=== PATIENT | female | born 1965 | race Caucasian/White ===

== ENCOUNTER 2022-01-12 20:31 | Emergency (ER) | payer OTHER, SELFPAY ==
--- OUTSIDE RECORDS SUMMARY | 2022-01-12 20:36 | XMS REPORT | Continuity of Care Document ---
:1965 Author Organization [facility] [place] [facility] t Address [address] [place] [address] Care Team Providers Name Role Phone [facility] Primary Care Physician Unavailab Dick Dang Attending Clinician Unavailable Sheryl HPLC CHEMIST, Dick Attending Clinician Natalya Mariano Attending Clinician NATALYA VANESSA Attending Clinician Unavailable Doctor Unassigned, Name Attending Clinician Unavailable RUFINO Attending Clinician Unavailable NETTA Attending Clinician Unavailable JUAN CARLOS Attending Clinician Unavailable Janeen KESSLER Attending Clinician Unavailable NATALYA VANESSA Admitting Clinician Unavailable Payers Payer Name Policy Type Policy Number Effective Date Expiration Date S ource Problems Condition Condition Condition Status Onset Resolution Last Treating Co mments Source Name Details Category Date Date Treatment Clinician Date No known No known Disease Unive rs active active ity of problems problems [facility] Allergies, Adverse Reactions, Alerts Allergy Allergy Status Severity Reaction(s) Onset Inactive Treating Comm ents Source Name Type Date Date Clinician ERYTHROM DRUG Active Rash Univers YCIN 07-14 ity of 00:00: [address] Erythrom Propensi Active Rash Univer s ycin ty to 07-14 ity of adverse 00:00: [place] reaction 00 [facility] Branch No Known DA Active U 2017-06 [facility] Allergie 2-11 Clear s 00:00: [place] [facility] CODEINE DA Active U 2007-0 [facility] 9-25 Clear 00:00: [place] 00 [facility] No Known DA Active U 2007-0 [facility] Contrast 9-25 Clear Allergie 00:00: [place] 00 [facility] No Known DA Active U 2007-0 [facility] Food 9-25 Clear Allergie 00:00: [place] [facility] No Known DA Active U 2007-0 [facility] Other 9-25 Clear Allergie 00:00: [place] [facility] codeine DA Active U 2003-0 [facility] 8-12 Clear 00:00: [place] 00 [facility] NO KNOWN Drug Active Univers ALLERGIE Class ity of [facility] Social History Social Habit Start Date Stop Date Quantity Comments Source Exposure to 2021-10-10 2021-10-20 Not sure [facility] SARS-CoV-2 (event) 00:00:00 14:39:00 Medica l Branch Sex [birth year] [facility] 00:00:00 00:00:00 Medical Branch Smoking Status Start Date Stop Date Source Former smoker 2015-12-14 00:00:00 2015-12-14 00:00:00 [facility] Branch Medications Ordered Filled Start Stop Current Ordering Indication Dosage Frequency Signature Comments Components Source Medication Medication Date Date Medication? Clinician (SIG) Name Name fluticasone Yes Use in Uni vers propionate 5-01 each ity of 50 16:40: nostril [place] mcg/actuati 50 daily. Medica l on nasal Branch spray cycloSPORIN Yes [id number] 1[drp] Place 1 Univers E 5-01 Drop in ity of (RESTASIS) 00:00[place] 0.05 % 00 every 12 Medical drops (twelve) Branch hours. tobramycin 2021- Yes [id number] 2[drp] Place 2 Univers 0.3 % 5-01 05-07 Drops in ity of ophthalmic 00:00: 04:59 [place] drops 00 :00 2 (two) Medical times Branch daily for 5 days. Continue until you follow up with eye doctor. cycloSPORIN 2021- No [id number] 1[drp] Place 1 Univers E 10-20 Drop in ity of (RESTASIS) 00:00: 00:00 [place] 0.05 % 00 :00 every 12 Medical drops (twelve) Branch hours. neomycin-po Yes .5[in_u 0.5 Inch, Univers lymyxin-dex 1-24 s] Right Eye, it y of amethasone 02:00: QID, First [place] (MAXITROL) 00 dose on Medica l 3.5 Sun Branch mg/g-10,000 07/14/21 at unit/g-0.1 2000, % Until ophthalmic Discontinu ointment ed, 0.5 Inch Routine neomycin-ba Yes [id number] .5[in_u Place 0.5 Univers citracin-po 07-14 9102 s] Inches in ity of ly-HC 00:00: right eye [place] 3.5-400-10, 00 4 (four) Medi diana 000 times Branch mg-unit/g-1 daily. % ophthalmic ointment neomycin-ba 2021- No [id number] .5[in_u Place 0.5 Univers citracin-po 07-14 9102 s] Inches in it y of ly-HC 00:00: 00:00 right eye [place] 3.5-400-10, 00 :00 4 (four) Medi diana 000 times Branch mg-unit/g-1 daily. % ophthalmic ointment methylpredn 2020-06- No 125mg 125 mg, U nivers isolone sod 08-18 Intramuscu i ty of succ 01:00: 23:50 lar, ONCE, [place] (SOLU-MEDRO 00 :00 1 dose, On Me dical L) Sun Branch injection 06/16/21 125 mg at 1900, STAT ipratropium 2020-06- No 3mL 3 mL, Univ ers -albuteroL 08-17 Inhalation it y of (DUONEB) 23:30: 23:30 , ONCE, 1 Akil as 0.5 mg-3 00 :00 dose, On Medical mg(2.5 mg Sun Branch base)/3 mL 06/16/21 nebulizer at 1730, solution 3 Routine mL predniSONE 2020-06 Yes [id number] 1 PO BID x Univers 20 mg 2-26 4 days ity of tablet 00:00: [place] 00 Medical Branch azithromyci 2020-06 Yes [id number] 250mg Take 1 Univers n 2-26 tablet by ity of (ZITHROMAX 00:00: mouth [place] Z-YOMI) 250 00 SEE-INSTRU Med ical mg tablet CTIONS. Branch Take 500 mg day 1, then 250 mg days 2 to 5. albuterol 2020-06 Yes [id number] 2{puff} Inhale 2 Univers 90 2-26 Puffs ity of mcg/actuati 00:00: every 4 Akil as on inhaler 00 (four) Medical hours as Branch needed for Wheezing or Shortness of Breath. albuterol 2020-06 Yes [id number] 2.5mg Inhale 3 Univers 2.5 mg /3 2-26 mL every 4 ity of mL (0.083 00:00: (four) [place] %) 00 hours as Medical nebulizer needed for Bran ch solution Wheezing or Shortness of Breath. benzonatate 2020-06 Yes [id number] 200mg Take 1 Univers 200 mg 2-26 capsule by ity of capsule 00:00: mouth 3 [place] 00 (three) Medical times Branch daily as needed for Cough for up to 20 doses. predniSONE 2020-06 Yes [id number] 1 PO BID x Univers 20 mg 2-26 4 days ity of tablet 00:00: [place] 00 Medical Branch azithromyci 2020-06 Yes [id number] 250mg Take 1 Univers n 2-26 tablet by ity of (ZITHROMAX 00:00: mouth [place] Z-YOMI) 250 00 SEE-INSTRU Med ical mg tablet CTIONS. Branch Take 500 mg day 1, then 250 mg days 2 to 5. albuterol 2020-06 Yes [id number] 2{puff} Inhale 2 Univers 90 2-26 Puffs ity of mcg/actuati 00:00: every 4 Akil as on inhaler 00 (four) Medical hours as Branch needed for Wheezing or Shortness of Breath. albuterol 2020-06 Yes [id number] 2.5mg Inhale 3 Univers 2.5 mg /3 2-26 mL every 4 ity of mL (0.083 00:00: (four) [place] %) 00 hours as Medical nebulizer needed for Bran ch solution Wheezing or Shortness of Breath. albuterol 2020-06 Yes [id number] 2{puff} Inhale 2 Univers 90 2-26 Puffs ity of mcg/actuati 00:00: every 4 Akil as on inhaler 00 (four) Medical hours as Branch needed for Wheezing or Shortness of Breath. albuterol 2020-06 Yes [id number] 2.5mg Inhale 3 Univers 2.5 mg /3 2-26 mL every 4 ity of mL (0.083 00:00: (four) [place] %) 00 hours as Medical nebulizer needed for Bran ch solution Wheezing or Shortness of Breath. benzonatate 2020-06 Yes [id number] 200mg Take 1 Univers 200 mg 2-26 capsule by ity of capsule 00:00: mouth 3 [place] 00 (three) Medical times Branch daily as needed for Cough for up to 20 doses. predniSONE 2020-06 Yes [id number] 1 PO BID x Univers 20 mg 2-26 4 days ity of tablet 00:00: [place] 00 Medical Branch azithromyci 2020-06 Yes [id number] 250mg Take 1 Univers n 2-26 tablet by ity of (ZITHROMAX 00:00: mouth [place] Z-YOMI) 250 00 SEE-INSTRU Med ical mg tablet CTIONS. Branch Take 500 mg day 1, then 250 mg days 2 to 5. albuterol 2020-06 Yes [id number] 2{puff} Inhale 2 Univers 90 2-26 Puffs ity of mcg/actuati 00:00: every 4 Akil as on inhaler 00 (four) Medical hours as Branch needed for Wheezing or Shortness of Breath. albuterol 2020-06 Yes [id number] 2.5mg Inhale 3 Univers 2.5 mg /3 2-26 mL every 4 ity of mL (0.083 00:00: (four) [place] %) 00 hours as Medical nebulizer needed for Bran ch solution Wheezing or Shortness of Breath. benzonatate 2020-06 Yes [id number] 200mg Take 1 Univers 200 mg 2-26 capsule by ity of capsule 00:00: mouth 3 [place] 00 (three) Medical times Branch daily as needed for Cough for up to 20 doses. benzonatate 2020-06- No [id number] 200mg Take 1 Univers 200 mg 2-26 05-01 capsule by ity of capsule 00:00: 00:00 mouth 3 [place] 00 :00 (three) Medical times Branch daily as needed for Cough for up to 20 doses. predniSONE 2020-06- No [id number] 1 PO BID x Univers 20 mg 08-17 4 days ity of tablet 00:00: 00:00 [place] 00 :00 Medical Branch azithromyci 2020-06- No [id number] 250mg Take 1 Univers n 08-17 tablet by ity of (ZITHROMAX 00:00: 00:00 mouth [place] Z-YOMI) 250 00 :00 SEE-INSTRU Med ical mg tablet CTIONS. Branch Take 500 mg day 1, then 250 mg days 2 to 5. cephALEXin 2020-0 Yes [id number] 500mg Take 1 Univers (KEFLEX) 02-21 9102 capsule by ity o f 500 mg 00:00: mouth 4 [place] capsule 00 (four) Medical times Branch daily. erythromyci 2020-0 Yes [id number] .5[in_u Place 0.5 Univers n 5 mg/gram 02-21 9102 s] Inches in ity of (0.5 %) 00:00: right eye [place] ophthalmic 00 4 (four) Medic al ointment times Branch daily. cephALEXin 2020-0 Yes [id number] 500mg Take 1 Univers (KEFLEX) 02-21 9102 capsule by ity o f 500 mg 00:00: mouth 4 [place] capsule 00 (four) Medical times Branch daily. erythromyci 2020-0 Yes [id number] .5[in_u Place 0.5 Univers n 5 mg/gram 02-21 9102 s] Inches in ity of (0.5 %) 00:00: right eye [place] ophthalmic 00 4 (four) Medic al ointment times Branch daily. cephALEXin 2020-0 Yes [id number] 500mg Take 1 Univers (KEFLEX) 02-21 9102 capsule by ity o f 500 mg 00:00: mouth 4 [place] capsule 00 (four) Medical times Branch daily. erythromyci 2020-0 Yes [id number] .5[in_u Place 0.5 Univers n 5 mg/gram 02-21 9102 s] Inches in ity of (0.5 %) 00:00: right eye [place] ophthalmic 00 4 (four) Medic al ointment times Branch daily. cephALEXin 2021- No [id number] 500mg Take 1 Univers (KEFLEX) 02-21 9102 capsule by ity of 500 mg 00:00: 00:00 mouth 4 [place] capsule 00 :00 (four) Medical times Branch daily. erythromyci 2021- No [id number] .5[in_u Place 0.5 Univers n 5 mg/gram 02-21 9102 s] Inches in it y of (0.5 %) 00:00: 00:00 [place] ophthalmic 00 :00 4 (four) Medic al ointment times Branch daily. erythromyci Yes [id number] .5[in_u Place 0.5 Univers n 5 mg/gram 03-13 9105 s] Inches in ity of (0.5 %) 00:00: both eyes [place] ophthalmic 00 4 (four) Medic al ointment times Branch daily. Continue until you follow up with eye doctor. erythromyci Yes [id number] .5[in_u Place 0.5 Univers n 5 mg/gram 03-13 9105 s] Inches in ity of (0.5 %) 00:00: both eyes [place] ophthalmic 00 4 (four) Medic al ointment times Branch daily. Continue until you follow up with eye doctor. erythromyci Yes [id number] .5[in_u Place 0.5 Univers n 5 mg/gram 03-13 9105 s] Inches in ity of (0.5 %) 00:00: both eyes [place] ophthalmic 00 4 (four) Medic al ointment times Branch daily. Continue until you follow up with eye doctor. erythromyci 2021- No [id number] .5[in_u Place 0.5 Univers n 5 mg/gram 03-13 9105 s] Inches in it y of (0.5 %) 00:00: 00:00 [place] ophthalmic 00 :00 4 (four) Medic al ointment times Branch daily. Continue until you follow up with eye doctor. OMEPRAZOLE Yes Take by Uni vers ORAL 6-25 mouth. ity of 21:27: [place] [address] Medical Branch PRAMIPEXOLE 2019-0 Yes Take by Un mariajose DI-HCL 6-25 mouth. ity of (MIRAPEX 21:27: [place] ORAL) 27 Medical Branch LEVOTHYROXI 2019-0 Yes Take by Un mariajose NE SODIUM 6-25 mouth. ity of (SYNTHROID 21:27: [place] ORAL) 27 Medical Branch THYROID,POR 2019-0 Yes Take by Un mariajose K (ARMOUR 6-25 mouth. ity of THYROID 21:27: [place] ORAL) 27 Medical Branch CLONAZEPAM 2019-0 Yes Take by Uni vers ORAL 6-25 mouth. ity of 21:27: [place] [address] Medical Branch CYCLOBENZAP Yes Take by Un mariajose RINE HCL 6-25 mouth. ity of (FLEXERIL 21:27: [place] ORAL) Medical Branch OMEPRAZOLE 2018-0 Yes Take by Uni vers ORAL 6-25 mouth. ity of 21:27: [place] [address] Medical Branch PRAMIPEXOLE Yes Take by Un mariajose DI-HCL 6-25 mouth. ity of (MIRAPEX 21:27: [place] ORAL) 27 Medical Branch LEVOTHYROXI Yes Take by Un mariajose NE SODIUM 6-25 mouth. ity of (SYNTHROID 21:27: [place] ORAL) Medical Branch THYROID,POR 0 Yes Take by Un mariajose K (ARMOUR 6-25 mouth. ity of THYROID 21:27: [place] ORAL) Medical Branch CLONAZEPAM 2018-0 Yes Take by Uni vers ORAL 6-25 mouth. ity of 21:27: [place] [address] Medical Branch CYCLOBENZAP Yes Take by Un mariajose RINE HCL 6-25 mouth. ity of (FLEXERIL 21:27: [place] ORAL) Medical Branch OMEPRAZOLE 2018-0 Yes Take by Uni vers ORAL 6-25 mouth. ity of 21:27: [place] [address] Medical Branch PRAMIPEXOLE 2019-0 Yes Take by Un mariajose DI-HCL 6-25 mouth. ity of (MIRAPEX 21:27: [place] ORAL) 27 Medical Branch LEVOTHYROXI 2019-0 Yes Take by Un mariajose NE SODIUM 6-25 mouth. ity of (SYNTHROID 21:27: [place] ORAL) 27 Medical Branch THYROID,POR 0 Yes Take by Un mariajose K (ARMOUR 6-25 mouth. ity of THYROID 21:27: [place] ORAL) Medical Branch CLONAZEPAM Yes Take by Uni vers ORAL 6-25 mouth. ity of 21:27: [place] [address] Medical Branch CYCLOBENZAP Yes Take by Un mariajose RINE HCL 6-25 mouth. ity of (FLEXERIL 21:27: [place] ORAL) Medical Branch OMEPRAZOLE Yes Take by Uni vers ORAL 6-25 mouth. ity of 21:27: [place] [address] Medical Branch PRAMIPEXOLE Yes Take by Un mariajose DI-HCL 6-25 mouth. ity of (MIRAPEX 21:27: [place] ORAL) Medical Branch LEVOTHYROXI Yes Take by Un mariajose NE SODIUM 6-25 mouth. ity of (SYNTHROID 21:27: [place] ORAL) Medical Branch THYROID,POR Yes Take by Un mariajose K (ARMOUR 6-25 mouth. ity of THYROID 21:27: [place] ORAL) Medical Branch CLONAZEPAM Yes Take by Uni vers ORAL 6-25 mouth. ity of 21:27: [place] [address] Medical Branch CYCLOBENZAP Yes Take by Un mariajose RINE HCL 6-25 mouth. ity of (FLEXERIL 21:27: [place] ORAL) Medical Branch ketorolac Yes [id number] 1[drp] Place 1 Univers 0.4 % 6-25 9104 Drop in ity of ophthalmic 00:00: [place] eyes [place] solution 00 4 (four) Medical times Branch daily. erythromyci Yes [id number] .5[in_u Place 0.5 Univers n 5 mg/gram 6-25 [id number] s] Inches in i ty of (0.5 %) 00:00: right eye [place] ophthalmic 00 at Medical ointment bedtime. Branch Continue until you follow up with eye doctor. erythromyci Yes [id number] .5[in_u Place 0.5 Univers n 5 mg/gram 6-25 326886 s] Inches in i ty of (0.5 %) 00:00: right eye [place] ophthalmic 00 at Medical ointment bedtime. Branch Continue until you follow up with eye doctor. ketorolac Yes [id number] 1[drp] Place 1 Univers 0.4 % 6-25 9104 Drop in ity of ophthalmic 00:00: [place] eyes [place] solution 00 4 (four) Medical times Branch daily. erythromyci Yes [id number] .5[in_u Place 0.5 Univers n 5 mg/gram 6-25 [id number] s] Inches in i ty of (0.5 %) 00:00: right eye [place] ophthalmic 00 at Medical ointment bedtime. Branch Continue until you follow up with eye doctor. ketorolac Yes [id number] 1[drp] Place 1 Univers 0.4 % 6-25 9104 Drop in ity of ophthalmic 00:00: [place] eyes [place] solution 00 4 (four) Medical times Branch daily. erythromyci Yes [id number] .5[in_u Place 0.5 Univers n 5 mg/gram 6-25 508907 s] Inches in i ty of (0.5 %) 00:00: right eye [place] ophthalmic 00 at Medical ointment bedtime. Branch Continue until you follow up with eye doctor. ketorolac 2021- No [id number] 1[drp] Place 1 Univers 0.4 % 6-25 05-01 9104 Drop in ity of ophthalmic 00:00: 00:00 [place] eyes [place] solution 00 :00 4 (four) Medical times Branch daily. sulfamethox 2017-06 Yes 1{tbl} Take 1 Un mariajose azole-trime 2-07 tablet by ity of thoprim 00:00: mouth [place] 800-160 mg 00 every 12 Medic al per tablet (twelve) Branc h hours. miconazole 2017-06 Yes Apply to Un mariajose 2 % cream 2-07 area(s) 2 ity o f 00:00: (two) [place] 00 times Medical daily. Branch sulfamethox 2017-06 Yes 1{tbl} Take 1 Un mariajose azole-trime 2-07 tablet by ity of thoprim 00:00: mouth [place] 800-160 mg 00 every 12 Medic al per tablet (twelve) Branc h hours. miconazole 2017-06 Yes Apply to Un mariajose 2 % cream 2-07 area(s) 2 ity o f 00:00: (two) [place] 00 times Medical daily. Branch sulfamethox 2017-06 Yes 1{tbl} Take 1 Un mariajose azole-trime 2-07 tablet by ity of thoprim 00:00: mouth [place] 800-160 mg 00 every 12 Medic al per tablet (twelve) Branc h hours. miconazole 2017-06 Yes Apply to Un mariajose 2 % cream 2-07 area(s) 2 ity o f 00:00: (two) [place] 00 times Medical daily. Branch sulfamethox 2017-06- No 1{tbl} Take 1 U nivers azole-trime 2-07 - tablet by it y of thoprim 00:00: 00:00 mouth [place] 800-160 mg 00 :00 every 12 Medic al per tablet (twelve) Branc h hours. miconazole 2017-06 Apply to U nivers 2 % cream 2- area(s) 2 ity of 00:00: 00:00 (two) [place] 00 :00 times Medical daily. Branch phenazopyri Yes 200mg Take 1 Uni vers dine 7-15 tablet by ity of (PYRIDIUM) 00:00: mouth 3 [place] 200 mg 00 (three) Medical tablet times Branch daily after meals. phenazopyri 2016-0 Yes 200mg Take 1 Uni vers dine 7-15 tablet by ity of (PYRIDIUM) 00:00: mouth 3 [place] 200 mg 00 (three) Medical tablet times Branch daily after meals. phenazopyri 2016-0 Yes 200mg Take 1 Uni vers dine 7-15 tablet by ity of (PYRIDIUM) 00:00: mouth 3 [place] 200 mg 00 (three) Medical tablet times Branch daily after meals. phenazopyri 2016-0 2021- No 200mg Take 1 Un mariajose dine 7-15 05-01 tablet by ity of (PYRIDIUM) 00:00: 00:00 mouth 3 Akil as 200 mg 00 :00 (three) Medical tablet times Branch daily after meals. Vital Signs Vital Name Observation Time Observation Value Comments Source Systolic blood 2021-10-20 19:41:00 172 mm[Hg] Univer sity of [facility] Diastolic blood 2021-10-20 19:41:00 97 [facility] 2021-10-20 19:41:00 104 /min Universi ty of [place] [facility] Body temperature 2021-10-20 19:41:00 37.06 Bree Univ ersity of [place] [facility] Respiratory rate 2021-10-20 19:41:00 20 /min Univ ersity of [place] [facility] Body height 2021-10-20 19:41:00 160 cm Universi ty of [place] [facility] Body weight 2021-10-20 19:41:00 74.844 kg Universi ty of [place] [facility] BMI 2021-10-20 19:41:00 29.23 kg/m2 Universi ty of [place] [facility] Oxygen saturation in 2021-10-20 19:41:00 97 /min University of Arterial blood by [place] [employer] diana Pulse oximetry Branch Systolic blood 2021-07-14 20:53:00 146 mm[Hg] Univer sity of pressure [place] [facility] Diastolic blood 2021-07-14 20:53:00 89 mm[Hg] Unive rsity of pressure [place] [facility] Heart rate 2021-07-14 20:53:00 95 /min Universi ty of [place] [facility] Body temperature 2021-07-14 20:53:00 37 Bree Univ ersity of [place] [facility] Respiratory rate 2021-07-14 20:53:00 18 /min Univ ersity of [place] [facility] Body weight 2021-07-14 20:53:00 72.576 kg Universi ty of [place] [facility] BMI 2021-07-14 20:53:00 28.34 kg/m2 Universi ty of [place] [facility] Oxygen saturation in 2021-07-14 20:53:00 99 /min University of Arterial blood by [place] Medi diana Pulse oximetry Branch Respiratory rate 2021-06-16 23:40:00 16 /min Univ ersity of [place] [facility] Oxygen saturation in 2021-06-16 23:40:00 94 /min University of Arterial blood by [place] [employer] diana Pulse oximetry Branch Systolic blood 2021-06-16 20:43:00 140 mm[Hg] Univer sity of pressure [place] [facility] Diastolic blood 2021-06-16 20:43:00 93 mm[Hg] Unive rsity of pressure [place] [facility] Heart rate 2021-06-16 20:43:00 85 /min Universi ty [facility] [place] [facility] Body temperature 2021-06-16 20:43:00 36.56 Bree [facility] Body weight 2021-06-16 20:43:00 72.576 kg [facility] Medical Branch BMI 2021-06-16 20:43:00 28.34 kg/m2 [facility] Procedures Procedure Date / Time Performed Performing Clinician Sour e CONSENT/REFUSAL FOR 2021-10-20 19:33:06 Doctor Unassigned, No Un iversity of [place] DIAGNOSIS AND Name Medical Branch TREATMENT COVID-19 (ID NOW RAPID 2021-07-14 21:47:00 Fidel Vanessa [facility] TESTING) Medical Branch NOTICE OF PRIVACY 2021-07-14 20:48:22 Doctor Unassigned, No [facility] Name Medical Branch CONSENT/REFUSAL FOR 2021-07-14 20:48:09 Doctor Unassigned, No [facility] [place] DI[facility] AND Name Medical Branch TREATMENT COVID-19 (ID NOW RAPID 2021-06-16 22:34:00 Fidel Vanessa [facility] TESTING) Medical Branch XR CHEST 1 VW 2021-06-16 22:31:35 Fidel Vanessa Natalya Hustle o f [place] [facility] [place] NOTICE OF PRIVACY 2021-06-16 21:50:25 Doctor Unassigned, No [facility] Name Medical Branch ASSIGNMENT OF BENEFITS 2021-06-16 21:50:06 Doctor Unassigned, No [facility] Medical Branch CONSENT/REFUSAL FOR 2021-06-16 20:33:01 Doctor Unassigned, No [facility] [place] DIAG[facility] AND Name Medical Branch TREATMENT Encounters Start End Encounter Admission Attending Care Care Encounter Source Date/Time Date/Time Type Type Clinicians Facility Department ID 2021-10-20 2021-10-20 [id number] Univers 14:42:00 17:15:00 CONNER seaman [facility] 2021-10-20 2021-10-20 [facility] [id number] Univers 14:42:00 17:15:00 Conner MON [id number] urszula kennedy [place] [id number] [facility] [id number] [facility] 084 Branch 2021-07-14 2021-07-14 Emergency Fidel Vanessa [facility] [id number] Univers 14:54:00 16:53:00 Natalyaesa WATSONVINH [id number] i ty of [place] 4.2.7.2.686 [facility] [id number] [place] [address] Branch 2021-07-14 2021-07-14 Emergency X Fidel VANESSA [facility] ERT [id number] Univers 14:54:00 16:53:00 ity of [facility] 2021-07-14 2021-07-14 Orders Doctor CITLALY [id number] Univers 00:00:00 00:00:00 Only Unassigned, [place] [id number] ity of [place] [facility] [id number] [facility] [id number] [place] [address] Branch 2021-06-16 2021-06-16 Emergency X Fidel VANESSA [facility] ERT [id number] Univers 14:45:00 17:56:00 ity of [facility] 2021-06-16 2021-06-16 Emergency Fidel Vanessa [facility] [id number] Univers 14:45:00 17:56:00 Natalya MON [id number] i ty of [place] 4.2.7.2.686 [facility] [id number] [address] 2021-01-30 2021-01-30 Outpatient R RUFINO [facility] [id number] Univers 11:00:00 11:00:00 SOHA riggs [facility] 2020-09-21 2020-09-21 Emergency X [facility] ERT [id number] Univers 09:13:00 09:13:00 ity of [facility] 2020-04-05 2020-04-05 Emergency X NETTA [facility] ERT [id number] Univers 14:49:00 14:49:00 NISHI ity of [facility] 2020-02-22 2020-02-22 Emergency X JUAN CARLOS [facility] ERT [id number] Univers 22:38:00 22:38:00 GROVER urszula [facility] 2019-11-14 2019-11-14 Emergency X CHECO [facility] ERT [id number] Univers 10:14:26 10:14:26 IAIN osmar [facility] Results Test Description Test Time Test Comments Results Result Comments Source TSH, THIRD GENERATION 2021-10-03 03:40:34 Test Item Value Reference Range Interpretation Comme nts TSH, THIRD GENERATION (test 28.500 UIU/ML 0.400-4.100 H UNLESS OTHERWISE code = 2821) INDICATED, ALL TESTING PERFORMED [facility]. [address] [place] [id number] LABORATORY DIRE CTOR: NIDA MEJÍA M.D. CLIA NUMBER [id number] CAP ACCREDITATION N O. [phone]
--- NOTE | 2022-01-12 21:14 | ER ---
Nurse's Notes [facility] Name: Yumiko Cespedes Age: 56 yrs Sex: Female : 1965 Arrival Date: 01/12/2022 Time: 20:36 Bed 6 Private MD: Diagnosis: Unspecified acute conjunctivitis, bilateral Presentation: 01/12 20:43 Chief complaint: Patient states: "I have Graves and Sjogrens and I have been having vc1 trouble with my left eye. They thought it was from a tooth so they did a root canal a couple of months ago and pulled a broke tooth. I've done 2 rounds of antibiotics and a steroid. It didn't help so they thought it was sinuses. Now my left eye is swollen, it hurts, and it had pus coming out of it last night.". Coronavirus screen: Vaccine status: Patient reports being unvaccinated. At this time, the client does not indicate any symptoms associated with coronavirus-19. Ebola Screen: No symptoms or risks identified at this time. Mechanism of Injury: No Mechanism of Injury. The patient denies any loss of vision. Initial Sepsis Screen: Does the patient meet any 2 criteria? No. Patient's initial sepsis screen is negative. Does the patient have a suspected source of infection? No. Patient's initial sepsis screen is negative. Risk Assessment: Do you want to hurt yourself or someone else? Patient reports no desire to harm self or others. Onset of symptoms is unknown. 20:43 Method Of Arrival: Ambulatory vc1 20:43 Acuity: KAL 4 vc1 Triage Assessment: 20:48 General: Appears in no apparent distress. Behavior is calm, cooperative, appropriate vc1 for age. Pain: Denies pain. Pain: Denies pain. Complains of pain in left eye Pain does not radiate. Pain currently is 7 out of 10 on a pain scale. Also complains of. EENT: Sclera/Cornea are reddened in outer aspect of conjuctiva of left eye and inner aspect of conjunctiva of left eye Reports pain photophobia. Historical: - Allergies: 20:46 Erythromycin; vc1 - Home Meds: 20:46 levothyroxine 210 mcg tab 1 tab once daily [Active]; Restasis 0.05 % ophthalmic (eye) vc1 dpet 1 drop every 12 hours [Active]; - PMHx: 20:46 Grave's; vc1 - PSHx: 20:46 Total abdominal hysterectomy; vc1 - Immunization history:: Adult Immunizations up to date. - Social history:: Smoking status: Patient reports the use of cigarette tobacco products, smokes one-half pack cigarettes per day. Screenin:49 Abuse screen: Denies threats or abuse. Nutritional screening: No deficits noted. vc1 Tuberculosis screening: No symptoms or risk factors identified. Fall Risk None identified. Assessment: 21:27 EENT: Eyes are tearing on outer aspect of conjuctiva of left eye, iris of left eye and aa9 inner aspect of conjunctiva of left eye. Vital Signs: 20:43 BP 145 / 85; Pulse 94; Resp 16; Temp 98.4; Pulse Ox 100% ; Weight 72.57 kg; Height 5 vc1 ft. 3 in. (160.02 cm); Pain 7/10; 20:43 Body Mass Index 28.34 (72.57 kg, 160.02 cm) vc1 ED Course: 20:36 Patient arrived in ED. bp1 20:39 Mikey Salgado DO is Attending Physician. ms3 20:46 Triage completed. vc1 20:49 Arm band placed on right wrist. vc1 21:12 Dao Livingston MD is Referral Physician. ms3 21:26 No provider procedures requiring assistance completed. Patient did not have IV access aa9 during this emergency room visit. 21:27 Patient has correct armband on for positive identification. aa9 Administered Medications: No medications were administered Medication: 21:27 VIS not applicable for this client. aa9 Outcome: 21:13 Discharge ordered by . ms3 21:26 Discharged to home ambulatory. aa9 21:26 Condition: stable 21:26 Discharge instructions given to patient, Instructed on discharge instructions, follow up and referral plans. medication usage, Demonstrated understanding of instructions, follow-up care, medications, Prescriptions given X 1. 21:27 Patient left the ED. aa9 Signatures: Mikey Salgado DO DO ms3 Leslie Lebron Vanessa RN RN vc1 Marine Zelaya RN RN aa9
--- NOTE | 2022-01-12 21:14 | EDPHYS ---
Physician Documentation [facility] Name: Yumiko Cespedes Age: 56 yrs Sex: Female : 1965 Arrival Date: 01/12/2022 Time: 20:36 Bed 6 Private MD: ED Physician Mikey Salgado HPI: 01/12 21:13 This 56 yrs old Female presents to ER via Ambulatory with complaints of Eye Pain, Eye ms3 Swelling, Eye Discharge. 21:13 56-year-old female with past medical history of Graves' and Sjogren's disease presents ms3 for bilateral eye erythema and drainage that has been ongoing for 3 weeks and became worse last night. Patient denies pain at this time. Patient denies alleviating or inciting factors. Patient denies fevers, chills, nausea, vomiting.. Historical: - Allergies: 20:46 Erythromycin; vc1 - Home Meds: 20:46 levothyroxine 210 mcg tab 1 tab once daily [Active]; Restasis 0.05 % ophthalmic (eye) vc1 dpet 1 drop every 12 hours [Active]; - PMHx: 20:46 Grave's; vc1 - PSHx: 20:46 Total abdominal hysterectomy; vc1 - Immunization history:: Adult Immunizations up to date. - Social history:: Smoking status: Patient reports the use of cigarette tobacco products, smokes one-half pack cigarettes per day. ROS: 21:13 Constitutional: Negative for fever, and chills. ENT: Negative for injury, pain, and ms3 discharge, Cardiovascular: Negative for chest pain, and palpitations. Respiratory: Negative for shortness of breath, cough, wheezing, and pleuritic chest pain, Abdomen/GI: Negative for abdominal pain, nausea, vomiting, diarrhea, and constipation, MS/Extremity: Negative for injury and deformity, Skin: Negative for injury, rash, and discoloration. 21:13 Eyes: Positive for discharge, redness. 21:13 All other systems are negative. Exam: 21:13 Constitutional: This is a well developed, well nourished patient who is awake, alert, ms3 and in no acute distress. Head/Face: Normocephalic, atraumatic. Neck: Trachea midline, no cervical lymphadenopathy. Supple, full range of motion without nuchal rigidity, or vertebral point tenderness. No Meningismus. Chest/axilla: Normal chest wall appearance and motion. Nontender with no deformity. Cardiovascular: Regular rate and rhythm with a normal S1 and S2. No gallops, murmurs, or rubs. Normal PMI, no JVD. No pulse deficits. Respiratory: Lungs have equal breath sounds bilaterally, clear to auscultation and percussion. No rales, rhonchi or wheezes noted. No increased work of breathing, no retractions or nasal flaring. Abdomen/GI: Soft, non-tender, with normal bowel sounds. No distension or tympany. No guarding or rebound. No evidence of tenderness throughout. Skin: Warm, dry with normal turgor. Normal color with no rashes, no lesions, and no evidence of cellulitis. Psych: Awake, alert, with orientation to person, place and time. Behavior, mood, and affect are within normal limits. 21:13 Eyes: Periorbital structures: appear normal, Pupils: equal, round, and reactive to light and accomodation, Extraocular movements: no acute changes, Conjunctiva: injected, in the right eye. Vital Signs: 20:43 BP 145 / 85; Pulse 94; Resp 16; Temp 98.4; Pulse Ox 100% ; Weight 72.57 kg; Height 5 vc1 ft. 3 in. (160.02 cm); Pain 7/10; 20:43 Body Mass Index 28.34 (72.57 kg, 160.02 cm) vc1 MDM: 21:12 Patient medically screened. ms3 21:13 Differential diagnosis: Conjunctivitis. Data reviewed: vital signs, nurses notes, and ms3 as a result, I will discharge patient. Data interpreted: Pulse oximetry: on room air is 100 %. Interpretation: normal. Counseling: I had a detailed discussion with the patient and/or guardian regarding: the historical points, exam findings, and any diagnostic results supporting the discharge/admit diagnosis, the need for outpatient follow up, to return to the emergency department if symptoms worsen or persist or if there are any questions or concerns that arise at home. Administered Medications: No medications were administered Disposition Summary: 01/12/22 21:13 Discharge Ordered Location: Home ms3 Condition: Stable ms3 Diagnosis - Unspecified acute conjunctivitis, bilateral ms3 Followup: ms3 - With: Dao Livingston MD - When: 2 - 3 days - Reason: Recheck today's complaints Discharge Instructions: - Discharge Summary Sheet ms3 - How to Use Eye Drops and Eye Ointments ms3 Forms: - Medication Reconciliation Form ms3 - Thank You Letter ms3 - Antibiotic Education ms3 - Prescription Opioid Use ms3 Prescriptions: - wuztdtaz-cmyxopkkfu-qvvr-HC 3.5-400-10,000 mg-unit/g-1% Ophthalmic ointment - apply 0.5 inch ribbon by OPHTHALMIC route every 4 hours; 1 tube; Refills: 0, cp Product Selection Permitted Signatures: Mikey Salgado DO DO ms3 Tran Colon RN RN vc1
[2022-01-12 21:55] VITALS: BP 145/85; TEMP 98.4; O2SAT 100
== END 2022-01-12 21:27 | disposition home or self-care (01) ==
LOC: ER 20:31
DX: H10.33 Unspecified acute conjunctivitis, bilateral (principal); F17.210 Nicotine dependence, cigarettes, uncomplicated; E05.00 Thyrotoxicosis with diffuse goiter without thyrotoxic crisis or storm; Z88.3 Allergy status to other anti-infective agents
CPT/HCPCS: 99282

== ENCOUNTER 2022-01-26 20:47 | Emergency (ER) | payer SELFPAY ==
[2022-01-26] MEDS ORDERED: PROMETHAZINE 25 MG TABLET ONE (21:31)
[2022-01-26] MEDS ORDERED: POLYETHYL GLY 3350 17 GM/DOSE ONE (21:31)
[2022-01-26 22:07] LABS: Urine Blood Negative (Negative); Urine Glucose Negative (Negative); Urine Protein Negative (Negative)
[2022-01-26 22:23] LABS: Urine Bacteria 20-50 /HPF (<20); Urine RBC <5 /HPF (None Seen)
[2022-01-26] MEDS ORDERED: WATER FOR INJ,STERILE 10 ML ONE (22:50)
[2022-01-26] MEDS ORDERED: CEFTRIAXONE 1000 MG/VIAL ONE (22:50)
--- NOTE | 2022-01-27 00:30 | ER ---
Nurse's Notes [facility] Name: Yumiko Cespedes Age: 57 yrs Sex: Female : 1965 Arrival Date: 01/26/2022 Time: 20:49 Bed 5 Private MD: Diagnosis: UTI/ Urinary tract infection, site not specified;Constipation;Low back pain Presentation: 01/26 20:59 Chief complaint: Patient states: she has been having difficulty having a bowel movement bb for the past 2 weeks then a week ago she started having low back pain and right flank pain since yesterday with chills and she just doesn't feel good. Coronavirus screen: At this time, the client does not indicate any symptoms associated with coronavirus-19. Ebola Screen: No symptoms or risks identified at this time. Initial Sepsis Screen: Does the patient meet any 2 criteria? No. Patient's initial sepsis screen is negative. Does the patient have a suspected source of infection? No. Patient's initial sepsis screen is negative. Risk Assessment: Do you want to hurt yourself or someone else? Patient reports no desire to harm self or others. Onset of symptoms was December 2021. 20:59 Method Of Arrival: Ambulatory bb 20:59 Acuity: KAL 3 bb Historical: - Allergies: 21:01 Erythromycin; bb - Home Meds: 21:01 levothyroxine 210 mcg tab 1 tab once daily [Active]; Restasis 0.05 % ophthalmic (eye) bb dpet 1 drop every 12 hours [Active]; - PMHx: 21:01 Grave's; bb - PSHx: 21:01 Total abdominal hysterectomy; neck fusion; bb - Immunization history:: Client reports having NOT received the Covid vaccine. - Social history:: Smoking status: Patient reports the use of cigarette tobacco products. Screenin/08 00:50 Abuse screen: Denies threats or abuse. Nutritional screening: No deficits noted. ll3 Tuberculosis screening: No symptoms or risk factors identified. Fall Risk None identified. Assessment: 01/26 21:58 Reassessment: No changes from previously documented assessment. Patient and/or family ll3 updated on plan of care and expected duration. Pain level reassessed. Patient is alert, oriented x 3, equal unlabored respirations, skin warm/dry/pink. 23:00 Reassessment: No changes from previously documented assessment. Patient and/or family ll3 updated on plan of care and expected duration. Pain level reassessed. Patient is alert, oriented x 3, equal unlabored respirations, skin warm/dry/pink. 01/27 00:07 Reassessment: No changes from previously documented assessment. Patient and/or family ll3 updated on plan of care and expected duration. Pain level reassessed. Patient is alert, oriented x 3, equal unlabored respirations, skin warm/dry/pink. Vital Signs: 01/26 20:59 BP 140 / 91; Pulse 77; Resp 20 S; Temp 98.5(O); Pulse Ox 100% on R/A; Weight 70.31 kg bb (R); Height 5 ft. 3 in. (160.02 cm) (R); Pain 5/10; 21:49 BP 130 / 88; Pulse 82; Resp 16; Pulse Ox 98% on R/A; kl 21:58 BP 140 / 86; Pulse 68; Resp 16; Pulse Ox 99% on R/A; ll3 23:00 BP 127 / 89; Pulse 74; Resp 17; Pulse Ox 99% on R/A; ll3 01/27 00:30 BP 117 / 82; Pulse 74; Resp 18; Pulse Ox 99% on R/A; ll3 01/26 20:59 Body Mass Index 27.46 (70.31 kg, 160.02 cm) bb ED Course: 01/26 20:49 Patient arrived in ED. bp1 20:51 Ivonne Polo FNP-C [facility]. snw 20:51 Stanford Choe MD is Attending Physician. snw 21:01 Triage completed. bb 21:01 Arm band placed on Patient placed in an exam room, on a stretcher, on pulse oximetry. bb 21:58 Rosenda Berkowitz, JOHN is Primary Nurse. ll3 22:54 CT Stone Protocol In Process Unspecified. EDMS 01/27 00:50 Patient has correct armband on for positive identification. Bed in low position. Call ll3 light in reach. Side rails up X 1. 00:50 No provider procedures requiring assistance completed. Patient did not have IV access ll3 during this emergency room visit. Administered Medications: 01/26 21:31 Drug: Phenergan (promethazine) 25 mg Route: PO; ll3 08/08 00:07 Follow up: Response: No adverse reaction 3 01/26 21:31 Drug: Miralax (polyethylene glycol) 17 grams Route: PO; ll3 01/27 00:08 Follow up: Response: No adverse reaction 3 01/26 22:48 Drug: Rocephin (cefTRIAXone) 1 grams Route: IM; Site: right gluteus; 23:37 Follow up: Response: No adverse reaction 01/27 00:44 Drug: Ketorolac 60 mg Route: IM; Site: right gluteus; ll3 00:51 Follow up: Response: No adverse reaction ll3 Medication: 00:51 VIS not applicable for this client. ll3 Outcome: 00:30 Discharge ordered by . snteagan 00:50 Discharged to home ambulatory. ll3 00:50 Condition: stable 00:50 Discharge instructions given to patient, Instructed on discharge instructions, follow up and referral plans. medication usage, Demonstrated understanding of instructions, follow-up care, medications, Prescriptions given X 3. 00:51 Patient left the ED. ll3 Signatures: Dispatcher [employer] EDMS Rika Quinn, RN RN Ivonne Palma, RAIL FLAW DETECTOR OPERATOR-C RAIL FLAW DETECTOR OPERATOR-Csnw Ysabel Hernandez RN RN bb Paniauga, Brittany bp1 Loubet, Lynsea, RN RN ll3
--- NOTE | 2022-01-27 00:31 | EDPHYS ---
Physician Documentation [facility] Name: Yumiko Cespedes Age: 57 yrs Sex: Female : 1965 Arrival Date: 01/26/2022 Time: 20:49 Bed 5 Private MD: JET Physician Stanford Choe HPI: 01/26 21:10 This 57 yrs old Female presents to ER via Ambulatory with complaints of Flank Pain, snw Back Pain. 21:10 The patient complains of pain in the right low back and right mid back. The pain does snw not radiate. Modifying factors: The symptoms are alleviated by nothing. the symptoms are aggravated by movement. Associated signs and symptoms: Pertinent positives: nausea. Severity of pain: At its worst the pain was moderate severe. The patient has not experienced similar symptoms in the past. The patient has not recently seen a physician, the patient's primary care provider is Dr. Mansfield in [place]. Historical: - Allergies: 21:01 Erythromycin; bb - Home Meds: 21:01 levothyroxine 210 mcg tab 1 tab once daily [Active]; Restasis 0.05 % ophthalmic (eye) bb dpet 1 drop every 12 hours [Active]; - PMHx: 21:01 Grave's; bb - PSHx: 21:01 Total abdominal hysterectomy; neck fusion; bb - Immunization history:: Client reports having NOT received the Covid vaccine. - Social history:: Smoking status: Patient reports the use of cigarette tobacco products. ROS: 21:10 Constitutional: Negative for fever, chills, and weight loss, Eyes: Negative for injury, snw pain, redness, and discharge, ENT: Negative for injury, pain, and discharge, Neck: Negative for injury, pain, and swelling, Cardiovascular: Negative for chest pain, palpitations, and edema, Respiratory: Negative for shortness of breath, cough, wheezing, and pleuritic chest pain, : Negative for injury, bleeding, discharge, and swelling, MS/Extremity: Negative for injury and deformity, Skin: Negative for injury, rash, and discoloration, Neuro: Negative for headache, weakness, numbness, tingling, and seizure. 21:10 Abdomen/GI: Positive for constipation. 21:10 Back: Positive for flank pain, on the right. Exam: 21:09 Constitutional: This is a well developed, well nourished patient who is awake, alert, snw and in no acute distress. Head/Face: Normocephalic, atraumatic. Eyes: Pupils equal round and reactive to light, extra-ocular motions intact. Lids and lashes normal. Conjunctiva and sclera are non-icteric and not injected. Cornea within normal limits. Periorbital areas with no swelling, redness, or edema. ENT: Nares patent. No nasal discharge, no septal abnormalities noted. Tympanic membranes are normal and external auditory canals are clear. Oropharynx with no redness, swelling, or masses, exudates, or evidence of obstruction, uvula midline. Mucous membranes moist. Neck: Trachea midline, no thyromegaly or masses palpated, and no cervical lymphadenopathy. Supple, full range of motion without nuchal rigidity, or vertebral point tenderness. No Meningismus. Chest/axilla: Normal chest wall appearance and motion. Nontender with no deformity. No lesions are appreciated. Cardiovascular: Regular rate and rhythm with a normal S1 and S2. No gallops, murmurs, or rubs. Normal PMI, no JVD. No pulse deficits. Respiratory: Lungs have equal breath sounds bilaterally, clear to auscultation and percussion. No rales, rhonchi or wheezes noted. No increased work of breathing, no retractions or nasal flaring. Skin: Warm, dry with normal turgor. Normal color with no rashes, no lesions, and no evidence of cellulitis. MS/ Extremity: Pulses equal, no cyanosis. Neurovascular intact. Full, normal range of motion. Neuro: Awake and alert, GCS 15, oriented to person, place, time, and situation. Cranial nerves II-XII grossly intact. Motor strength 5/5 in all extremities. Sensory grossly intact. Cerebellar exam normal. Normal gait. Psych: Awake, alert, with orientation to person, place and time. Behavior, mood, and affect are within normal limits. 21:09 Abdomen/GI: Inspection: abdomen appears normal, Bowel sounds: normal, Palpation: abdomen is soft and non-tender, in all quadrants. 21:09 Back: pain, that is moderate, of the right mid back and right low back, CVA tenderness, is noted on the right, muscle spasm, is not present. Vital Signs: 20:59 BP 140 / 91; Pulse 77; Resp 20 S; Temp 98.5(O); Pulse Ox 100% on R/A; Weight 70.31 kg bb (R); Height 5 ft. 3 in. (160.02 cm) (R); Pain 5/10; 21:49 BP 130 / 88; Pulse 82; Resp 16; Pulse Ox 98% on R/A; kl 21:58 BP 140 / 86; Pulse 68; Resp 16; Pulse Ox 99% on R/A; ll3 23:00 BP 127 / 89; Pulse 74; Resp 17; Pulse Ox 99% on R/A; ll3 01/27 00:30 BP 117 / 82; Pulse 74; Resp 18; Pulse Ox 99% on R/A; ll3 01/26 20:59 Body Mass Index 27.46 (70.31 kg, 160.02 cm) bb MDM: 01/26 20:56 Patient medically screened. snw 23:50 Awaiting: CT scan results, awaiting radiologist. snw 01/27 00:31 Data reviewed: vital signs, nurses notes. Data interpreted: Pulse oximetry: on room air snw is 99 %. Interpretation: normal. Counseling: I had a detailed discussion with the patient and/or guardian regarding: the historical points, exam findings, and any diagnostic results supporting the discharge/admit diagnosis, lab results, radiology results, the need for outpatient follow up, to return to the emergency department if symptoms worsen or persist or if there are any questions or concerns that arise at home. Response to treatment: the patient's symptoms have mildly improved after treatment. Special discussion: Based on the patient's Hx, exam, and Dx evaluation, there is no indication for emergent surgery or inpatient Tx. It is understood by the patient/guardian that if the Sx's persist or worsen they need to return immediately for re-evaluation. Based on the history and exam findings, there is no indication for further emergent testing or inpatient evaluation. I discussed with the patient/guardian the need to see the primary care provider for further evaluation of the symptoms. 01/26 21:08 Order name: Urine Culture snw 01/26 21:08 Order name: Urine Microscopic Only; Complete Time: 22:25 snw 01/26 22:08 Order name: Urine Dipstick-Ancillary; Complete Time: 22:08 EDMS 01/26 22:27 Order name: CT Stone Protocol snw Administered Medications: 01/26 21:31 Drug: Phenergan (promethazine) 25 mg Route: PO; ll3 01/27 00:07 Follow up: Response: No adverse reaction 3 01/26 21:31 Drug: Miralax (polyethylene glycol) 17 grams Route: PO; ll3 01/27 00:08 Follow up: Response: No adverse reaction 3 01/26 22:48 Drug: Rocephin (cefTRIAXone) 1 grams Route: IM; Site: right gluteus; kl 23:37 Follow up: Response: No adverse reaction 01/27 00:44 Drug: Ketorolac 60 mg Route: IM; Site: right gluteus; ll3 00:51 Follow up: Response: No adverse reaction ll3 Disposition: 07:19 Co-signature as Attending Physician, Stanford Choe MD. [email or web address] Disposition Summary: 01/27/22 00:30 Discharge Ordered Location: Home snw Condition: Stable snw Diagnosis - UTI/ Urinary tract infection, site not specified snw - Constipation snw - Low back pain snw Followup: snw - With: Private Physician - When: 1 week - Reason: Recheck today's complaints, Continuance of care, Re-evaluation by your physician Followup: snw - With: Emergency Department - When: As needed - Reason: Worsening of condition Discharge Instructions: - Discharge Summary Sheet snw - Acute Back Pain, Adult snw - Urinary Tract Infection, Adult snw - Rehydration, Adult snw - Heat Therapy snw Forms: - Medication Reconciliation Form snw - Thank You Letter snw - Antibiotic Education snw - Prescription Opioid Use snw Prescriptions: - Augmentin 875-125 mg Oral Tablet - take 1 tablet by ORAL route every 12 hours for 10 days; 20 tablet; Refills: 0, snw Product Selection Permitted - orphenadrine citrate 100 mg Oral Tablet Sustained Release - take 1 tablet by ORAL route 2 times per day As needed; 20 tablet; Refills: 0, snw Product Selection Permitted - promethazine 25 mg Oral Tablet - take 1 tablet by ORAL route every 6 hours As needed; 20 tablet; Refills: 0, snw Product Selection Permitted Signatures: Dispatcher [facility] Rika Drake RN RN kl Waters, Shelly, FNP-C FNP-Csnw Ysabel Hernandez, RN RN bb Stanford Choe MD MD mh7 Rosenda Berkowitz RN RN ll3
[2022-01-27] MEDS ORDERED: KETOROLAC 30 MG/ML INJ ONE (00:48)
[2022-01-27 02:14] VITALS: TEMP 98.5
[2022-01-27 02:21] VITALS: O2SAT 99
[2022-01-27 02:25] VITALS: BP 117/82
--- NOTE | 2022-01-27 10:06 | RAD REPORT ---
EXAM DESCRIPTION: CT - Stone Protocol - 01/27/2022 6:53 am Stone Protocol CLINICAL HISTORY: 57 years Female flank pain TECHNIQUE: Contiguous axial images obtained through the abdomen and pelvis without IV contrast. Sandrita nal and sagittal reformatted images provided. This CT exam was performed according to our departmental dose-optimization program, which includes on e or more of the following dose reduction techniques: automated exposure control, adjustment of the m A and/or kV according to patient size, and/or use of iterative reconstruction technique. COMPARISON: No prior exams provided for comparison. FINDINGS: There are no renal, ureteral, or bladder calculi. There is no hydronephrosis or perinephri c stranding on either side. The appendix is normal. Sigmoid diverticulosis without diverticulitis. There is no bowel inflammation , obstruction, free intraperitoneal air, or ascites. Subcentimeter focus of low attenuation in the right lobe of the liver is too small to fully character ize on this noncontrast study. Fatty replacement of the pancreas without inflammation or visualized focal lesion. The biliary tree, gallbladder, pancreas, spleen, adrenal glands, kidneys, urinary bladder, and osseou s structures are normal. IMPRESSION: No urolithiasis or appendicitis. No acute abdominal or pelvic findings. Electronically signed by: Pily Byrne MD 01/26/2022 11:26 PM CDT Due to temporary technical issues with the PACS/Fluency reporting system, reports are being signed by the in house radiologists without review as a courtesy to insure prompt reporting. The interpreting radiologist is fully responsible for the content of the report.
== END 2022-01-27 00:51 | disposition home or self-care (01) ==
LOC: ER 20:47
DX: N39.0 Urinary tract infection, site not specified (principal); K59.00 Constipation, unspecified; Z72.0 Tobacco use; Z88.3 Allergy status to other anti-infective agents
CPT/HCPCS: 74176; 76377; 81003; 81015; 87086; 87088; 96372; 99284; Q0169

== ENCOUNTER 2023-09-15 14:41 | Inpatient (IN) | payer SELFPAY ==
[2023-09-15] MEDS ORDERED: ONDANSETRON 4 MG/2 ML VIAL ONE (16:16)
[2023-09-15] MEDS ORDERED: KETOROLAC 30 MG/ML INJ ONE (16:17)
[2023-09-15] MEDS ORDERED: DICYCLOMINE HCL 10 MG CAP ONE (16:17)
[2023-09-15] MEDS ORDERED: NA CHLORIDE 0.9% 1,000 ML ONE (16:17)
[2023-09-15 16:23] LABS: Absolute Basophils 0.1 K/uL (0-0.5); Absolute Lymphocytes (CBC) 1.7 K/uL (0.7-4.9); Absolute Monocytes 0.7 K/uL (0.1-1.3); Absolute Neutrophil 7.3 K/uL (1.8-8.0); Basophils % 0.5 % (0-1.3); Hematocrit 37.7 % (36.0-45.0); Hemoglobin 13.1 g/dL (12.0-15.0); Lymphocytes % 17.2 % (15.3-44.8); MCH 32.7 pg (27.0-35.0); MCHC 34.8 g/dL (32.0-36.0); MCV 94.2 fL (80-100); MPV 6.1 fL (7.6-11.3); Monocytes % 6.9 % (3.3-12.3); Neutrophils % 75.4 % (41.7-73.7); Platelets 344 thou/uL (152-406); Red Cell Distribution Width 12.1 % (12.1-15.2)
[2023-09-15 16:37] LABS: Albumin 3.5 g/dL (3.4-5.0); Albumin/Globulin Ratio 0.9 (1.1-1.8); Anion Gap 8.9 mEq/L (5.0-15.0); Bilirubin Total 0.9 mg/dL (0.2-1.0); Globulin 3.9 g/dL (2.3-3.5); Potassium 3.9 mEq/L (3.5-5.1); Protein, Total 7.4 g/dL (6.4-8.2)
[2023-09-15 16:56] LABS: Specific Gravity 1.009 (1.005-1.030); Urine Bilirubin NEGATIVE (Negative); Urine Blood Negative (Negative); Urine Clarity Clear (Clear); Urine Color Light-Yellow (Yellow); Urine Glucose NEGATIVE (Negative); Urine Ketones NEGATIVE (Negative); Urine Microscopic Reflex YN NO UMIC; Urine Nitrite NEGATIVE (Negative); Urine Protein NEGATIVE (Negative); Urine Urobilinogen Normal (Normal); Urine pH 6.5 (5.0-7.0)
--- NOTE | 2023-09-15 17:30 | RAD REPORT ---
EXAM DESCRIPTION: CTAbdomen Pelvis W Contrast - 09/15/2023 5:17 pm CLINICAL HISTORY: Abdominal pain. ABD PAIN COMPARISON: Abdomen Pelvis W Contrast dated 05/22/2016 TECHNIQUE: Biphasic CT imaging of the abdomen and pelvis was performed with 100 ml non-ionic IV cont rast. All CT scans are performed using dose optimization technique as appropriate and may include automated exposure control or mA/KV adjustment according to patient size. FINDINGS: The lung bases are clear. The liver, spleen, adrenal glands and kidneys are within normal limits. Hypodensity in the pancreatic parenchyma likely fatty infiltration. No bowel obstruction, free air, free fluid or abscess. There is irregular 5 cm fluid collection in th e left lower quadrant which appears inflamed. It appears medially adjacent to diverticula in the sigm oid colon. This could also be related to the left ovary. The appendix is normal. No evidence of sign ificant lymphadenopathy. No suspicious bony findings. IMPRESSION: Irregular lesion in the left lower quadrant measuring 5-6 cm with internal low-density. This is adjacent to the sigmoid colon where numerous diverticula are present. Is also in close approx imation to the left ovary. Findings could be a peridiverticular abscess or an ovarian mass. After ricardo atment for possible infection, repeat imaging would be recommended in an attempt to distinguish the t wo.
--- NOTE | 2023-09-15 18:20 | ER ---
Nurse's Notes [facility] Name: Yumiko Cespedes Age: 58 yrs Sex: Female : 1965 Arrival Date: 09/15/2023 Time: 14:41 Bed 17 Private MD: Ninfa Christiansen Diagnosis: Lower abdominal pain, unspecified-with LLQ mass 5-6cm Presentation: 09/14 15:12 Chief complaint: Patient states: Abdominal pain with constipation for 9 days. N/V this ll1 past weekend. Coronavirus screen: Client denies travel out of the [place] in the last 14 days. At this time, the client does not indicate any symptoms associated with coronavirus-19. Ebola Screen: Patient denies travel to an Ebola-affected area in the 21 days before illness onset. Initial Sepsis Screen: Does the patient meet any 2 criteria? No. Patient's initial sepsis screen is negative. Does the patient have a suspected source of infection? No. Patient's initial sepsis screen is negative. Risk Assessment: Do you want to hurt yourself or someone else? Patient reports no desire to harm self or others. Onset of symptoms was September 13, 2023. 15:12 Method Of Arrival: Ambulatory ll1 15:12 Acuity: KAL 3 ll1 Historical: - Allergies: 15:00 Erythromycin; ll1 15:15 Sulfa (Sulfonamide Antibiotics); ll1 - PMHx: 15:00 Grave's; ll1 15:15 schrogrens; ll1 - PSHx: 15:00 neck fusion; Total abdominal hysterectomy; ll1 - Immunization history:: Adult Immunizations up to date. - Social history:: Smoking status: Patient reports the use of cigarette tobacco products, smokes one-half pack cigarettes per day. Screenin:56 [facility] ED Fall Risk Assessment (Adult) History of falling in the last 3 months, nj1 including since admission No falls in past 3 months (0 pts) Confusion or Disorientation No (0 pts) Intoxicated or Sedated No (0 pts) Impaired Gait No (0 pts) Mobility Assist Device Used No (0 pt) Altered Elimination No (0 pt) Score/Fall Risk Level 0 - 2 = Low Risk Oriented to surroundings, Maintained a safe environment, Hourly rounding (assess needs \T\ fall precautionary measures) done. Abuse screen: Denies threats or abuse. Denies injuries from another. Nutritional screening: No deficits noted. Tuberculosis screening: No symptoms or risk factors identified. Assessment: 16:10 General: Appears in no apparent distress. comfortable, Behavior is calm, cooperative, nj1 appropriate for age. Pain: Complains of pain in abdomen Pain currently is 5 out of 10 on a pain scale. at worst was 10 out of 10 on a pain scale. Neuro: Level of Consciousness is awake, alert, obeys commands, Oriented to person, place, time, situation. Cardiovascular: Patient's skin is warm and dry. Respiratory: Airway is patent Respiratory effort is even, unlabored. GI: Reports lower abdominal pain, Loose stools, has been taking medicine for constipation Patient currently denies nausea, vomiting. 19:05 Reassessment: Patient appears in no apparent distress at this time. No changes from [facility] previously documented assessment. Patient and/or family updated on plan of care and expected duration. Pain level reassessed. Patient is alert, oriented x 3, equal unlabored respirations, skin warm/dry/pink. Vital Signs: 15:13 BP 140 / 85; Pulse 100; Resp 18; Temp 98.6; Pulse Ox 98% ; Weight 88.45 kg; Height 5 ll1 ft. 3 in. ; Pain 10/10; 19:05 BP 121 / 72; Pulse 75; Resp 16; Pulse Ox 100% ; Pain 5/10; nj1 15:13 Body Mass Index 34.54 (88.45 kg, 160.02 cm) 1 15:13 Pain Scale: Adult [facility] 19:05 Pain Scale: Adult [facility] ED Course: 14:43 Patient arrived in ED. mr 14:54 Isabelle Miller FNP-C [facility]. kb 14:54 Justo Machado MD is Attending Physician. kb 15:00 Arm band placed on. ll1 15:07 Ninfa Christiansen is Private Physician. mr 15:13 Triage completed. 1 16:03 Virginia Stroud, JOHN is Primary Nurse. nj1 16:10 Patient has correct armband on for positive identification. Bed in low position. Call nj1 light in reach. Provided Education on: call light, fall precautions. 16:10 Inserted saline lock: 22 gauge in right antecubital area, using aseptic technique. ne1 Blood collected. 17:[address] hb 17:15 Patient maintains SpO2 saturation greater than 95% on room air. hb 17:19 CT Abd/Pelvis - IV Contrast Only In Process Unspecified. EDMS 18:19 Bonnie Donato MD is Hospitalizing Provider. kb Administered Medications: 16:25 Drug: NS 0.9% IV 1000 ml IV at 1 bolus Per protocol; 1000 mL bolus Route: IV; Rate: 1 nj1 bolus; Site: right antecubital; 16:25 Drug: Ondansetron IVP 4 mg IVP once; over 2 minutes Route: IVP; Site: right antecubital;nj1 16:25 Drug: Dicyclomine PO 20 mg PO once Route: PO; nj1 16:27 Drug: TORadol - Ketorolac IVP 15 mg IVP once Route: IVP; Site: right antecubital; nj1 Outcome: 18:19 Decision to Hospitalize by Provider. kb 20:41 Patient left the ED. nj1 Signatures: Dispatcher [employer] EDMS Isabelle Miller, DEVELOPMENT CHEMIST-C DEVELOPMENT CHEMIST-Ckb Yumiko Ludwig, Reg Reg mr Jaimee Frost, RN RN Rabia Quinn, JOHN RN ll1 Virginia Stroud, JOHN RN nj1 Corrections: (The following items were deleted from the chart) 15:15 15:12 Chief complaint: Patient states: Abdominal pain since Thursday with constipation. ll1 ll1 15:16 15:13 Social history: Smoking status: Patient denies any tobacco usage or history of. ll1 ll1 15:16 15:13 Pulse 100bpm; Resp 18bpm; Pulse Ox 98%; Temp 98.6F; 88.45 kg; Height 5 ft. 3 in.; ll1 BMI: 34.5; Pain 10, Adult; ll1
--- NOTE | 2023-09-15 18:20 | EDPHYS ---
Physician Documentation [facility] Name: Yumiko Cespedes Age: 58 yrs Sex: Female : 1965 Arrival Date: 09/15/2023 Time: 14:41 Bed 17 Private MD: Ninfa Christiansen ED Physician Justo Machado HPI: 09/14 18:18 This 58 yrs old Female presents to ER via Ambulatory with complaints of Abdominal Pain. kb 18:18 Patient is a 58-year-old female who presents for abdominal pain that started 9 days kb ago. States she was constipated at the onset of pain, took a stool softener which made the pain worse and has caused intermittent diarrhea. Reports vomiting over the weekend. Denies fever but reports chills.. Historical: - Allergies: 15:00 Erythromycin; ll1 15:15 Sulfa (Sulfonamide Antibiotics); ll1 - PMHx: 15:00 Grave's; ll1 15:15 schrogrens; ll1 - PSHx: 15:00 neck fusion; Total abdominal hysterectomy; ll1 - Immunization history:: Adult Immunizations up to date. - Social history:: Smoking status: Patient reports the use of cigarette tobacco products, smokes one-half pack cigarettes per day. ROS: 18:16 Constitutional: As per HPI kb Exam: 18:16 Constitutional: This is a well developed, well nourished patient who is awake, alert, kb and in no acute distress. Head/Face: Normocephalic, atraumatic. ENT: Moist Mucous membranes Cardiovascular: Regular rate Respiratory: Respirations even and unlabored. No increased work of breathing. Talking in full sentences Skin: Warm, dry with normal turgor. Normal color. MS/ Extremity: Pulses equal, no cyanosis. Neurovascular intact. Full, normal range of motion. Neuro: Awake and alert, GCS 15, oriented to person, place, time, and situation. Moves all extremities. Normal gait. 18:16 Abdomen/GI: Inspection: abdomen appears normal, Bowel sounds: normal, Palpation: soft, in all quadrants, mild abdominal tenderness, in the left lower quadrant, Vital Signs: 15:13 BP 140 / 85; Pulse 100; Resp 18; Temp 98.6; Pulse Ox 98% ; Weight 88.45 kg; Height 5 ll1 ft. 3 in. ; Pain 10/10; 19:05 BP 121 / 72; Pulse 75; Resp 16; Pulse Ox 100% ; Pain 5/10; nj1 15:13 Body Mass Index 34.54 (88.45 kg, 160.02 cm) ll1 15:13 Pain Scale: Adult ll1 19:05 Pain Scale: Adult nj1 MDM: 14:55 Patient medically screened. kb 18:16 Differential diagnosis: diverticulitis, non-specific abd pain, urinary tract infection. kb Consideration of Admission/Observation Patient was admitted/placed on observation. Escalation of care including admission/observation considered. Management of patient was discussed with the following: Hospitalist: Dr Donato accepts pt for admission. Roll Over Loader: Dr Chan accepts pt for consult. Counseling: I had a detailed discussion with the patient and/or guardian regarding the historical points, exam findings, and any diagnostic results supporting the discharge/admit diagnosis, lab results, radiology results, the need for further work-up and treatment in the hospital. 18:18 Data reviewed: vital signs, nurses notes. kb 09/14 15:18 Order name: CBC with Diff; Complete Time: 16:37 kb 09/14 15:18 Order name: CMP; Complete Time: 16:41 kb 09/14 15:18 Order name: Lipase; Complete Time: 16:41 kb 09/14 15:18 Order name: Urinalysis w/ reflexes; Complete Time: 17:05 kb 09/14 19:10 Order name: Basic Metabolic Panel EDUT 09/14 19:10 Order name: Basic Metabolic Panel EDUT 09/14 19:10 Order name: CBC with Automated Diff EDUT 09/14 19:10 Order name: CBC with Automated Diff EDUT 09/14 19:10 Order name: Protime (+INR) EDUT 09/14 19:10 Order name: Protime (+INR) EDUT 09/14 19:10 Order name: PTT, Activated Partial Thromb EDUT 09/14 19:10 Order name: PTT, Activated Partial Thromb EDUT 09/14 15:18 Order name: CT Abd/Pelvis - IV Contrast Only; Complete Time: 17:31 kb 09/14 19:10 Order name: Perc Abd Abcess Drainage EDUT 09/14 19:10 Order name: Perc Abd Abcess Drainage EDUT 09/14 19:10 Order name: CONS Physician Consult EDUT 09/14 15:18 Order name: IV Saline Lock; Complete Time: 16:53 kb 09/14 15:18 Order name: Labs collected and sent; Complete Time: 16:53 kb Administered Medications: 16:25 Drug: NS 0.9% IV 1000 ml IV at 1 bolus Per protocol; 1000 mL bolus Route: IV; Rate: 1 nj1 bolus; Site: right antecubital; 16:25 Drug: Ondansetron IVP 4 mg IVP once; over 2 minutes Route: IVP; Site: right antecubital;nj1 16:25 Drug: Dicyclomine PO 20 mg PO once Route: PO; nj1 16:27 Drug: TORadol - Ketorolac IVP 15 mg IVP once Route: IVP; Site: right antecubital; nj1 Disposition Summary: 09/15/23 18:19 Hospitalization Ordered Notes: Hospitalization Status: Inpatient Admission kb Provider: Bonnie Donato [facility] kb Condition: Stable kb Problem: new kb Symptoms: are unchanged kb Bed/Room Type: Standard Room Assignment: 207(09/15/23 19:32) kl Diagnosis - Lower abdominal pain, unspecified - with LLQ mass 5-6cm kb Forms: - Medication Reconciliation Form kb - SBAR form kb - Leadership Thank You Letter kb Signatures: Dispatcher [employer] EDIsabelle Munguia, BUFFING LINE SET UP WORKER-C BUFFING LINE SET UP WORKER-Rika Wylie, RN RN Rabia Teague RN RN ll1 Virginia Stroud RN RN nj1 Corrections: (The following items were deleted from the chart) 15:16 15:13 Social history: Smoking status: Patient denies any tobacco usage or history of. ll1 ll1 19:32 18:19 kb santiago
--- NOTE | 2023-09-15 18:53 | P.HP ---
Certification for Inpatient Patient admitted to: Inpatient With expected LOS: >2 Midnights Patient will require the following post-hospital care: None Practitioner: I am a practitioner with admitting privileges, knowledge of patient current condition, hospital course, and medical plan of care. Services: Services provided to patient in accordance with Admission requirements found in Title 42 Section 412.3 of the Code of Federal Regulations Patient History Date of Service: 09/15/23 Reason for admission: Constipation/abdominal pain History of Present Illness: Patient is a 58-year-old female was evaluated with abdominal pain and constipation. Patient has a history of Sjogren syndrome and she has had a prior hysterectomy. She says she has been dealing with constipation since . She has some similar pain around that time but she did not really think much of it as it improved on its own. Over the last week she was having a lot more tenderness. She had taken stool softeners on multiple occasions last weekend, and afterwards she started having a lot of cramping. This past week she was placed on Linzess, and even after taking Linzess her symptoms appear to worsen. As patient was not feeling any better she came into the emergency room for further evaluation. In the emergency room patient was evaluated and a CT scan of the abdomen was performed. Patient had a diverticular abscess. At this time, patient will be admitted to the hospital and get started on IV antibiotics and IV fluids. Will keep patient NPO. Will touch base with general surgery and will keep patient n.p.o. after midnight. We will also contact radiology for possible CT-guided drainage of the abdominal abscess if it is amenable to drainage. Patient will be admitted for inpatient hospitalization for the perforated colon abscess. Allergies erythromycin base Allergy (Verified 09/15/23 19:30) Itching/Hives/Rash Sulfa (Sulfonamide Antibiotics) Allergy (Verified 09/15/23 19:29) Itching/Hives/Rash - Past Medical/Surgical History -: Constipation -: Grave's disease -: Glaucoma -: Sjogren's syndrome -: HTN -: Colonoscopy(6years ago) (Cologuard 3 months ago) -: Glaucoma surgery -: Hysterectomy -: Laminectomy (C5-C7) - Family History Father Family History: Reviewed- Non-Contributory - Social History Smoking Status: Heavy Tobacco smoker (>10 cigarettes/day) Alcohol use: Yes CD- Drugs: Yes Review of Systems 10-point ROS is otherwise unremarkable Physical Examination - Vital Signs Temperature: 98 F Blood Pressure: 110/80 Pulse: 80 Respirations: 18 Pulse Ox (%): 95 - Physical Exam General: Alert, In no apparent distress, Oriented x3 HEENT: Atraumatic, PERRLA, Mucous membr. moist/pink, EOMI, Sclerae nonicteric Neck: Supple, 2+ carotid pulse no bruit, No LAD, Without JVD or thyroid abnormality Respiratory: Clear to auscultation bilaterally, Normal air movement Cardiovascular: Regular rate/rhythm, Normal S1 S2, No murmurs Capillary refill: None Gastrointestinal: Hypoactive, Soft and benign, Non-distended, Tenderness (LLG) Musculoskeletal: No clubbing, No swelling, No tenderness Integumentary: No rashes Neurological: Normal gait, Normal speech, Normal strength at 5/5 x4 extr, Normal tone, Sensation intact, Cranial nerves 3-12 intact, Normal affect Lymphatics: No axilla or inguinal lymphadenopathy - Studies Laboratory Data (last 24 hrs) 09/15/23 09/15/23 16:10 16:10 WBC 9.60 Hgb 13.1 Hct 37.7 Plt Count 344 Sodium 136 Potassium 3.9 BUN 9 Creatinine 0.58 Glucose 100 Total Bilirubin 0.9 AST 16 ALT 18 Alkaline Phosphatase 82 Lipase 13 Assessment & Plan - Problems (Diagnosis) (1) Diverticular disease of intestine with perforation and abscess Current Visit: Yes Status: Acute (2) Sjogrens syndrome Current Visit: Yes Status: Acute (3) H/O abdominal hysterectomy Current Visit: Yes Status: Acute (4) History of Graves' disease Current Visit: Yes Status: Acute - Plan 1. Diverticular abscess; at this time, will continue with aggressive IV hydration with IV antibiotic therapy. General surgery was consulted and they are aware of patient's admission. Will also consult interventional radiology for a possible CT-guided drainage of the intra-abdominal abscess. Patient's pain is pretty well-controlled. Will continue monitoring labs and will get a blood culture. Continue with n.p.o. and antiemetics. At this time, patient will need inpatient hospitalization. 2. Sjogren's syndrome; continue with supportive care 3. History of Graves' disease status post radioactive iodine treatment; currently, patient on Synthroid 4. History of hypertension continue with antihypertensives 5. GI DVT prophylaxis Discharge Plan: Home Plan to discharge in: Greater than 2 days - Advance Directives Does patient have a Living Will: No Does patient have a Durable POA for Healthcare: No - Code Status/Comfort Care Code Status Assessed: Yes Code Status: Full Code Critical Care: No Time Spent Managing PTS Care (In Minutes): 45
[2023-09-15] MEDS: NA CHLORIDE 0.9% 1,000 ML IV SCH (21:14)
[2023-09-15] MEDS: PIPER TAZO 3.375 GM in NA CHLORIDE 0.9% 100 ML IV ONE (21:15)
[2023-09-15] MEDS: MORPHINE 2 MG/ML SYR IV PRN (22:21)
[2023-09-15] MEDS: ONDANSETRON 4 MG/2 ML VIAL IV PRN (22:22)
[2023-09-15] MEDS: ACETAMINOPHEN 500 MG TAB PO PRN (22:22)
[2023-09-15 22:26] VITALS: BMI 34.5
[2023-09-16] MEDS: PIPER TAZO 3.375 GM in NA CHLORIDE 0.9% 100 ML IV SCH (01:00)
[2023-09-16 03:32] LABS: Absolute Lymphocytes (CBC) 1.6 K/uL (0.7-4.9); Absolute Monocytes 0.6 K/uL (0.1-1.3); Absolute Neutrophil 4.4 K/uL (1.8-8.0); Basophils % 0.1 % (0-1.3); Hematocrit 31.9 % (36.0-45.0); Hemoglobin 11.4 g/dL (12.0-15.0); Lymphocytes % 24.7 % (15.3-44.8); MCH 33.3 pg (27.0-35.0); MCHC 35.6 g/dL (32.0-36.0); MCV 93.5 fL (80-100); MPV 6.1 fL (7.6-11.3); Monocytes % 9.1 % (3.3-12.3); Neutrophils % 66.1 % (41.7-73.7); Nucleated Red Blood Cells % 0.1 % (0-0); Platelets 284 thou/uL (152-406); RBC Red Blood Cell Count 3.41 M/uL (3.86-4.86); Red Cell Distribution Width 12.3 % (12.1-15.2)
[2023-09-16 03:33] LABS: PT Prothrombin Time 12.2 SECONDS (9.5-12.5); PTT, Activated Partial Thromb 30.3 SECONDS (24.3-36.9); Protime INR 1.11
[2023-09-16 03:57] LABS: Anion Gap 5.8 mEq/L (5.0-15.0); Potassium 3.8 mEq/L (3.5-5.1)
--- NOTE | 2023-09-16 15:57 | P.PN ---
Subjective Date of Service: 09/16/23 Chief Complaint: Constipation/abdominal pain Patient report persistent abdominal pain. She denies any vomiting and no diarrhea. No recorded fever. Physical Examination - Vital Signs Temperature: 98.2 F Blood Pressure: 111/61 Pulse: 70 Respirations: 16 Pulse Ox (%): 95 - Studies Laboratory Data (last 24 hrs) 09/15/23 09/15/23 16:10 16:10 WBC 9.60 Hgb 13.1 Hct 37.7 Plt Count 344 Sodium 136 Potassium 3.9 BUN 9 Creatinine 0.58 Glucose 100 Total Bilirubin 0.9 AST 16 ALT 18 Alkaline Phosphatase 82 Lipase 13 Assessment And Plan - Plan Physical examination General: Alert and oriented x3, NAD, HEENT: Conjunctiva not pale, anicteric sclera Neck: Supple, no elevated JVD Heart: Heart sounds 1 and 2 normal, regular rhythm, normal rate, no pedal edema Lungs: Clear to auscultation bilaterally, adequate breath sounds bilaterally, no rhonchi or crackles. Abdomen: Soft, nondistended, diffuse tenderness, normal bowel sounds. Extremities: No tenderness, no deformity Skin: Normal skin turgor, no rash, no nodules or ulcers. Neuro: No focal motor deficit. Normal speech. Psychiatry: Normal mood, no agitation. Assessment and plan Diverticular abscess Aggressive IV antibiotics. General surgery was consulted. Patient scheduled for CT-guided drainage of the abscess today Analgesics as needed Currently n.p.o. Serial abdominal examination Sjogren's syndrome Supportive care Resume pilocarpine once diet is resumed History of Graves' disease status post radioactive iodine treatment Continue Synthroid once diet is resumed Essential hypertension BP is within normal range. Losartan is on hold. DVT prophylaxis: SCD
--- NOTE | 2023-09-16 22:09 | CON ---
Date of Consultation: 09/16/2023 Reason For Service: Sigmoid inflammation, probably sigmoid diverticulitis with possible intramural a bscess, we cannot rule out any malignancy. History Of Present Illness: This is a case of a 58-year-old patient, who comes with abdominal pain f or the last 2-3 days. Have some nausea, some bloating. Decided to come to the ER last night and fou nd to have CAT scans consistent with what it could be a diverticulitis with possible abscess. The buzz [place] has a history of constipation. She has never had colonoscopy. She stated that she did a Colog uard and it was negative. She stated that her constipation has been worse since April of last yea r. Right now is August. She denies any dysuria, hematuria, hematochezia, melena. Denies any recent traveling out of the country. Denies any family member sick at home. Denies any melena. Denies a c hange other than mentioned above constipation since [facility]. Allergies: ERYTHROMYCIN, SULFA. Past Medical History: Includes chronic constipation, glaucoma, Graves disease, Sjogren syndrome, hyp ertension. Past Surgical History: Includes glaucoma surgery, hysterectomy, laminectomy C5-C7. We also found ou t that she probably had a colonoscopy 6 years ago and Cologuard 3 months ago. Family History: No history of colon cancer. Social History: Smokes about 10 cigarettes a day. The patient is advised a consult about smoking ce ssation. She drinks alcohol occasionally. Review of Systems: See HPI for details. See my history of present illness above and review of systems 10 points otherwi se unremarkable. Physical Examination: Vital Signs: Stable. General: The patient is awake and alert. HEENT: Pupils are equal and reactive. Anicteric. Neck: Supple. Chest: Clear. Heart: S1, S2. Abdomen: Soft and depressible. There is some tenderness in the left lower quadrant. Some guarding with no rebound. Pelvic: Deferred. Rectal: Deferred. Extremities: Good capillary refill. Neurologic: Oriented x3. Laboratory Data: WBC count is 6.7, hemoglobin 11.4, and platelets of 284. INR is 1.1, potassium is 3.8, creatinine is 0.69. CAT scan of the abdomen and pelvis interpreted by Dr. Madrid as an irregular lesion in the left lower quadrant measuring about 5-6 cm with interval low density. This is adjacent to the sigmoid colon, where numerous diverticula are present. It also in close approximation to the left ovary. Findings could be a peridiverticular abscess or ovarian mass. After treatment for poss ible infection, repeat imaging was recommended by him in an attempt to distinguish the two. Assessment: This is a 58-year-old patient with pathology in the left lower quadrant. She has Cologu aiyana done recently that did not show any evidence of cancer as per the patient. She has history of co nstipation since Thanks and then we have those findings. WBC count is not elevated. There is some mild tenderness, but no rebound tenderness. In the meantime, we are going to give her the antib iotics, trying to call to see if we can define the etiology of this. We discussed with he r differential diagnosis which includes gynecological pathology versus gastrointestinal pathology marnie t may include diverticular versus neoplasia. She understood. We are going to keep the patient n.p.o . today, making sure that we do not stimulate the intestines too much. She understands the options o f emergent laparotomy with possible bowel resection, possible ostomy with benefits, alternatives, and risks including, but not limited to infection, bleeding, damage to adjacent structures, anesthesia c omplication, OK, even . Obviously, she does not want to use that at this moment if possible. Kristine nicolas will see the patient clinically and follow the patient with you and give more recommendations as the case develops. GENESIS/SALLY Voice ID: [id number] Report ID: [id number]
[2023-09-17 03:43] LABS: Absolute Lymphocytes (CBC) 1.4 K/uL (0.7-4.9); Absolute Monocytes 0.6 K/uL (0.1-1.3); Absolute Neutrophil 5.5 K/uL (1.8-8.0); Basophils % 0.1 % (0-1.3); Hematocrit 29.8 % (36.0-45.0); Hemoglobin 10.6 g/dL (12.0-15.0); Lymphocytes % 18.2 % (15.3-44.8); MCH 33.3 pg (27.0-35.0); MCHC 35.7 g/dL (32.0-36.0); MCV 93.2 fL (80-100); MPV 6.3 fL (7.6-11.3); Monocytes % 7.8 % (3.3-12.3); Neutrophils % 73.9 % (41.7-73.7); Platelets 255 thou/uL (152-406); Red Cell Distribution Width 12.1 % (12.1-15.2)
[2023-09-17 04:06] LABS: Albumin 2.8 g/dL (3.4-5.0); Albumin/Globulin Ratio 0.9 (1.1-1.8); Anion Gap 5.8 mEq/L (5.0-15.0); Potassium 3.8 mEq/L (3.5-5.1); Protein, Total 5.8 g/dL (6.4-8.2)
--- NOTE | 2023-09-17 15:36 | PN ---
Date of Progress Note: 09/17/2023 Diagnoses: Colitis; possible abscess, left lower quadrant, possible cause by diverticular disease. Subjective: The patient is doing better. Pain is less, was trying to see some improvement in her pa in. No nausea, no vomiting. Passing gas. Objective: Chest: Clear. Abdomen: Soft and depressible. Still have some left lower quadrant pain, although better than the d ay before. Laboratory Data: WBC count is still within normal limits. Plan: I noticed the patient already have clear liquid diet. She is tolerating. I believe we should leave it on that today. Tomorrow depends how she does and clinically, then we can advance diet slow ly. Continue antibiotics. HM/MODL Voice ID: [id number] Report ID: [id number]
--- NOTE | 2023-09-17 16:06 | P.PN ---
Subjective Date of Service: 09/17/23 Chief Complaint: Constipation/abdominal pain Patient report improvement in her abdominal pain No nausea vomiting or diarrhea. She is tolerating clear liquid diet. Physical Examination - Vital Signs Temperature: 97.9 F Blood Pressure: 114/59 Pulse: 68 Respirations: 17 Pulse Ox (%): 97 Assessment And Plan - Plan Physical examination General: Alert and oriented x3, NAD, Heart: Heart sounds 1 and 2 normal, regular rhythm, normal rate, no pedal edema Lungs: Clear to auscultation bilaterally, adequate breath sounds bilaterally, no rhonchi or crackles. Abdomen: Soft, nondistended, diffuse tenderness, normal bowel sounds. No RBG, no guarding. Extremities: No tenderness, no deformity Skin: Normal skin turgor, no rash, no nodules or ulcers. Neuro: No focal motor deficit. Psychiatry: Normal mood, no agitation. Assessment and plan Diverticular abscess Continue aggressive IV antibiotics. General surgery Dr. Chan evaluated patient An attempt at CT-guided drainage was unsuccessful. Dr. Chan recommended antibiotics and monitoring for now. Analgesics as needed Clear liquid diet Serial abdominal examination. May need repeat CT within the next 3 days for follow-up. Sjogren's syndrome Supportive care Continue pilocarpine. History of Graves' disease status post radioactive iodine treatment Continue Synthroid. Essential hypertension BP is within normal range. Losartan is on hold. DVT prophylaxis: SCD
[2023-09-17] MEDS: MONTELUKAST 10 MG TAB PO SCH (20:39)
[2023-09-18] MEDS: LEVOTHYROXINE SOD 0.1 MG TAB PO SCH (05:40)
[2023-09-18] MEDS: PILOCARPINE HCL 5 MG PO SCH (09:00)
--- NOTE | 2023-09-18 09:27 | PN ---
Date of Progress Note: 09/18/2023 Diagnosis: Colitis with pericolonic inflammation and abscess. Subjective: The patient is doing well. Feels a lot better today with less pain. No guarding. No r ebound. Objective: Chest: Clear. Abdomen: Soft and depressible. Still mild left lower quadrant tenderness, lot better than before. Extremities: Good capillary refill. Laboratory Data: Blood work reviewed. Plan: Advance to full liquid diet. Ambulation. Continue antibiotics. GENESIS/SALLY Voice ID: [id number] Report ID: [id number]
--- NOTE | 2023-09-18 12:34 | P.PN ---
Subjective Date of Service: 09/18/23 Chief Complaint: Constipation/abdominal pain Patient report significant improvement in abdominal pain. She has been tolerating clear liquid diet She reports no BM since admission. Physical Examination - Vital Signs Temperature: 98.1 F Blood Pressure: 110/56 Pulse: 66 Respirations: 19 Pulse Ox (%): 96 Assessment And Plan - Plan Physical examination General: Alert and oriented x3, NAD, Heart: Heart sounds 1 and 2 normal, regular rhythm, normal rate, no pedal edema Lungs: Clear to auscultation bilaterally, adequate breath sounds bilaterally, no rhonchi or crackles. Abdomen: Soft, nondistended, diffuse tenderness, normal bowel sounds. No RBG, no guarding. Extremities: No tenderness, no deformity Skin: Normal skin turgor, no rash, no nodules or ulcers. Neuro: No focal motor deficit. Psychiatry: Normal mood, no agitation. Assessment and plan Diverticular abscess Continue IV antibiotics. General surgery Dr. Chan is following. An attempt at CT-guided drainage was unsuccessful. Dr. Chan recommend antibiotics and monitoring for now. Analgesics as needed Clear liquid diet Serial abdominal examination. Repeat CT tomorrow to assess response to antibiotics. Infectious disease consult to advise on antibiotics. Sjogren's syndrome Supportive care Continue pilocarpine. History of Graves' disease status post radioactive iodine treatment Continue Synthroid. Essential hypertension BP is within normal range. Losartan is on hold. DVT prophylaxis: SCD
[2023-09-18] MEDS: MELATONIN 5 MG TABLET PO ONE (21:55)
[2023-09-19] MEDS ORDERED: MELATONIN 5 MG TABLET PO ONE (09:37)
[2023-09-19 09:41] LABS: Absolute Monocytes 0.6 K/uL (0.1-1.3); Absolute Neutrophil 6.3 K/uL (1.8-8.0); Basophils % 0.2 % (0-1.3); Hematocrit 31.5 % (36.0-45.0); Hemoglobin 11.5 g/dL (12.0-15.0); MCH 33.6 pg (27.0-35.0); MCHC 36.6 g/dL (32.0-36.0); MCV 91.7 fL (80-100); MPV 6.4 fL (7.6-11.3); Monocytes % 7.7 % (3.3-12.3); Neutrophils % 79.1 % (41.7-73.7); Nucleated Red Blood Cells % 0.1 % (0-0); Platelets 295 thou/uL (152-406); RBC Red Blood Cell Count 3.43 M/uL (3.86-4.86); Red Cell Distribution Width 12.3 % (12.1-15.2)
[2023-09-19 09:59] LABS: Albumin 2.9 g/dL (3.4-5.0); Albumin/Globulin Ratio 0.9 (1.1-1.8); Anion Gap 9.7 mEq/L (5.0-15.0); Bilirubin Total 1.2 mg/dL (0.2-1.0); Globulin 3.4 g/dL (2.3-3.5); Potassium 3.7 mEq/L (3.5-5.1); Protein, Total 6.3 g/dL (6.4-8.2)
--- NOTE | 2023-09-19 10:40 | P.PN ---
Subjective Date of Service: 09/19/23 Chief Complaint: Constipation/abdominal pain Subjective: Tolerating diet (minimal clear liquid, passing flatus, no stools yet) <Ivonne Polo - Last Filed: 09/19/23 10:40> Date of Service: 09/19/23 <Dom Chin - Last Filed: 09/19/23 16:07> Review of Systems 10-point ROS is otherwise unremarkable Gastrointestinal: As per HPI <Ivonne Polo - Last Filed: 09/19/23 10:40> Physical Examination - Vital Signs Temperature: 98.1 F Blood Pressure: 119/55 Pulse: 68 Respirations: 14 Pulse Ox (%): 96 - Physical Exam General: Alert, In no apparent distress, Oriented x3 HEENT: Atraumatic, Normocephalic Neck: Supple Respiratory: Clear to auscultation bilaterally, Normal air movement Cardiovascular: Normal pulses, Regular rate/rhythm Capillary refill: <2 Seconds Gastrointestinal: Soft and benign, Tenderness (minimal suprapubic) Musculoskeletal: No clubbing, No swelling Integumentary: No rashes Neurological: Normal speech, Normal tone Lymphatics: No axilla or inguinal lymphadenopathy External genitalia: Deferred Rectal: Deferred <Ivonne Polo - Last Filed: 09/19/23 10:40> Assessment And Plan - Plan Diverticular abscess Continue IV antibiotics. General surgery Dr. Chan is following. An attempt at CT-guided drainage was unsuccessful. Dr. Chan recommend antibiotics and monitoring for now. Analgesics as needed Clear liquid diet Serial abdominal examination. Repeat CT tomorrow to assess response to antibiotics. Infectious disease consult to advise on antibiotics. Sjogren's syndrome Supportive care Continue pilocarpine. History of Graves' disease status post radioactive iodine treatment Continue Synthroid. Essential hypertension BP is within normal range. Losartan is on hold. DVT prophylaxis: SCD <Ivonne Polo - Last Filed: 09/19/23 10:40> - Plan Pt seen and examined. I agree with augustina note by the LATIN DANCER. Pt is feeling better. We could not do CT guided drainage. Will continue zosyn. repeat CT abd shows a 5.2 x 2.6 centimeter low-density mass adjacent to the sigmoid colon minimally enlarged from the prior exam probably an abscess secondary to diverticulitis. It also shows 2.5 centimeter lobulated lucent lesion greater trochanter left femur has sclerotic border. It has enlarged since 2021. Will f/u x-ray of the hip in 3 months. <Dom Chin - Last Filed: 09/19/23 16:07>
--- NOTE | 2023-09-19 12:23 | RAD REPORT ---
EXAM DESCRIPTION: CT - Abdomen Pelvis W Contrast - 09/19/2023 11:46 am CLINICAL HISTORY: Abdominal pain COMPARISON: September 15, 2023 and 2021 TECHNIQUE: Computed axial tomography of the abdomen pelvis was obtained. 100 cc Isovue-300 was admin istered intravenously. Oral contrast was not requested which limits evaluation of bowel and appendix All CT scans are performed using dose optimization technique as appropriate and may include automated exposure control or mA/KV adjustment according to patient size. FINDINGS: 5.2 x 2.6 centimeter mass adjacent to left aspect of sigmoid colon is minimally enlarged from prior e xam. It predominately contains low-density. Diverticula stem from the adjacent colon with stranding i n the adjacent fat. The mass also abuts the left ovary. Small amount of free fluid. 2.5 centimeter lobulated lucent lesion greater trochanter left femur has sclerotic border. It has enl arged since 2021. Is unchanged from September 15, 2023 No other change IMPRESSION: 5.2 x 2.6 centimeter low-density mass adjacent to the sigmoid colon minimally enlarged from the prior exam probably an abscess secondary to diverticulitis. 2.5 centimeter lobulated lucent lesion greater trochanter left femur has sclerotic border. It has enl arged since 2021. Is unchanged from September 15, 2023. It has a relatively benign appearance. This may r epresent a unicameral bone cyst, aneurysmal bone cyst, brown tumor or fibrous dysplasia. It is recomm ended that the patient have an x-ray in 3 months to reassess stability
--- NOTE | 2023-09-19 12:35 | PN ---
Date of Progress Note: 09/19/2023 Diagnoses: Diverticulitis, colitis with abscess. Subjective: The patient is doing better, less pain. No nausea, no vomiting. Passing flatus. Laboratory Data: Blood work shows a normal WBC count of 8. CT scan of the abdomen and pelvis still pending for today. Plan: Out of bed, ambulation. Continue antibiotics. Follow up in the CAT scan and advance diet as clinically indicated and if imaging allows. GENESIS/SALLY Voice ID: [id number] Report ID: [id number]
--- NOTE | 2023-09-20 09:58 | P.PN ---
Subjective Date of Service: 09/20/23 Chief Complaint: Constipation/abdominal pain Subjective: No new changes, Tolerating diet (not sleeping well, mildly depressed affect) <Ivonne Polo - Last Filed: 09/20/23 09:55> Date of Service: 09/20/23 <Dom Chin - Last Filed: 09/20/23 17:45> Review of Systems 10-point ROS is otherwise unremarkable General: Unremarkable Gastrointestinal: Other (+flatus, no bm, states mild tenderness to suprapubic area and left lower quad) Genitourinary: As per HPI <Ivonne Polo - Last Filed: 09/20/23 09:55> Physical Examination - Vital Signs Temperature: 97.0 F Blood Pressure: 121/66 Pulse: 64 Respirations: 16 Pulse Ox (%): 96 - Physical Exam General: Alert, In no apparent distress, Oriented x3 HEENT: Atraumatic, Normocephalic Neck: Supple, JVD not distended Respiratory: Clear to auscultation bilaterally, Normal air movement Cardiovascular: No edema, Normal pulses, Regular rate/rhythm Capillary refill: <2 Seconds Gastrointestinal: Tenderness (mild suprapubic to left lower) Musculoskeletal: No clubbing, No swelling Integumentary: No rashes Neurological: Normal speech, Normal tone Lymphatics: No axilla or inguinal lymphadenopathy External genitalia: Deferred Rectal: Deferred <Ivonne Polo - Last Filed: 09/20/23 09:55> Assessment And Plan - Plan Diverticular abscess Continue IV antibiotics. General surgery Dr. Chan is following. An attempt at CT-guided drainage was unsuccessful. May try again on 09/21/23 Dr. Chan recommend antibiotics and monitoring for now. Analgesics as needed Clear liquid diet, advance to soft Serial abdominal examination. Repeated CT 09/18 - no change Infectious disease consult to advise on antibiotics. Sjogren's syndrome Supportive care Continue pilocarpine. History of Graves' disease status post radioactive iodine treatment Continue Synthroid. Essential hypertension BP is within normal range. Losartan is on hold. DVT prophylaxis: SCD <Ivonne Polo - Last Filed: 09/20/23 09:55> - Plan Pt seen and examined. I agree with the note by the BANKING ASSISTANT. Pt is feeling better. We could not do CT guided drainage. Will continue zosyn. Repeat CT abd shows a 5.2 x 2.6 centimeter low-density mass adjacent to the sigmoid colon minimally enlarged from the prior exam probably an abscess secondary to diverticulitis. It also shows 2.5 centimeter lobulated lucent lesion greater trochanter left femur has sclerotic border. It has enlarged since 2021. Will f/u x-ray of the hip in 3 months. Waiting for Gen surgeon's recommendation. <Dom Chin - Last Filed: 09/20/23 17:45>
[2023-09-21 05:21] LABS: Absolute Lymphocytes (CBC) 1.6 K/uL (0.7-4.9); Absolute Monocytes 0.6 K/uL (0.1-1.3); Absolute Neutrophil 4.6 K/uL (1.8-8.0); Basophils % 0.1 % (0-1.3); Hematocrit 30.5 % (36.0-45.0); Hemoglobin 10.9 g/dL (12.0-15.0); Lymphocytes % 23.1 % (15.3-44.8); MCH 32.8 pg (27.0-35.0); MCHC 35.8 g/dL (32.0-36.0); MCV 91.6 fL (80-100); MPV 6.4 fL (7.6-11.3); Monocytes % 8.8 % (3.3-12.3); Platelets 302 thou/uL (152-406); RBC Red Blood Cell Count 3.34 M/uL (3.86-4.86); Red Cell Distribution Width 12.2 % (12.1-15.2)
[2023-09-21 05:36] LABS: Albumin 2.8 g/dL (3.4-5.0); Albumin/Globulin Ratio 0.8 (1.1-1.8); Anion Gap 8.5 mEq/L (5.0-15.0); Bilirubin Total 0.9 mg/dL (0.2-1.0); Globulin 3.3 g/dL (2.3-3.5); Magnesium 1.9 mg/dL (1.6-2.4); Potassium 3.5 mEq/L (3.5-5.1); Protein, Total 6.1 g/dL (6.4-8.2)
--- NOTE | 2023-09-21 07:07 | P.PN ---
Subjective Date of Service: 09/21/23 Chief Complaint: Constipation/abdominal pain Not tolerating p.o. diet, reports passing gas, no bowel movement, left lower quadrant tenderness supra pubic tenderness, - Physical Exam General: Alert, In no apparent distress, Oriented x3 HEENT: Atraumatic, Normocephalic Neck: Supple, JVD not distended Respiratory: Clear to auscultation bilaterally, Normal air movement Cardiovascular: No edema, Normal pulses, Regular rate/rhythm Capillary refill: <2 Seconds Gastrointestinal: Tenderness (mild suprapubic to left lower) Musculoskeletal: No clubbing, No swelling Integumentary: No rashes Neurological: Normal speech, Normal tone Lymphatics: No axilla or inguinal lymphadenopathy <Moni Abbasi - Last Filed: 09/21/23 16:37> Date of Service: 09/21/23 <Dom Chin - Last Filed: 09/21/23 22:16> Review of Systems per HPI <Moni Abbasi - Last Filed: 09/21/23 16:37> Physical Examination - Vital Signs Temperature: 97.9 F Blood Pressure: 106/60 Pulse: 50 Respirations: 18 Pulse Ox (%): 95 <Moni Abbasi - Last Filed: 09/21/23 16:37> Assessment And Plan - Plan - Plan Diverticular abscess Diverticulitis improved constipation Continue IV antibiotics. [facility] General surgery Dr. Chan is following. An attempt at CT-guided drainage was unsuccessful. May try again on 09/21/23 Dr. Chan recommend antibiotics and monitoring for now. Analgesics as needed Clear liquid diet, advance to soft Serial abdominal examination. Repeated CT 09/18 - no change Infectious disease consult to advise on antibiotics. will add prunes to meal Microcytic anemia Hemoglobin [id number], 10.9 Trend H&H Transfuse hemoglobin less than Sjogren's syndrome Supportive care Continue pilocarpine. History of Graves' disease status post radioactive iodine treatment Continue Synthroid. Essential hypertension BP is within normal range. Losartan is on hold. DVT SCDs Full code Diet full liquid Disposition Home, alone, independent with ADLs Discharge Plan: Home - Code Status/Comfort Care Code Status: Full Code Critical Care: No Time Spent Managing PTS Care (In Minutes): 35 <Moosa,Moni - Last Filed: 09/21/23 16:37> - Plan Pt seen and examined. I agree with the note by the [employer]. Continue iv abx. Waiting for Gen surgery recommendation. Will continue iv zosyn. <Dom Chin - Last Filed: 09/21/23 22:16>
[2023-09-21] MEDS: POTASSIUM CL SA 10 MEQ TAB PO ONE (08:14)
--- NOTE | 2023-09-21 10:32 | P.CNS ---
Date of Consult: 09/21/23 Reason for Consult: diverticular abscess Chief Complaint: Constipation/abdominal pain Allergies erythromycin base Allergy (Verified 09/15/23 19:30) Itching/Hives/Rash Sulfa (Sulfonamide Antibiotics) Allergy (Verified 09/15/23 19:29) Itching/Hives/Rash Home medications list reviewed: Yes Home Medications: Cyclosporine [Restasis] 1 each OP DAILY 09/15/23 Levothyroxine Sodium [Synthroid] 200 mcg PO DAILY 09/15/23 Losartan/Hydrochlorothiazide [Losartan-Hctz 50-12.5 mg Tab] 1 each PO DAILY 09/15/23 Montelukast [Singulair] 10 mg PO BEDTIME 09/15/23 Pilocarpine HCl 5 mg PO DAILY 09/15/23 Pilocarpine HCl 5 mg PO DAILY 09/18/23 - Past Medical/Surgical History Diabetic: No -: Constipation -: Grave's disease -: Glaucoma -: Sjogren's syndrome -: HTN -: Colonoscopy(6years ago) (Cologuard 3 months ago) -: Glaucoma surgery -: Hysterectomy -: Laminectomy (C5-C7) - Family History Father Family History: Reviewed- Non-Contributory - Social History Smoking Status: Current every day smoker Alcohol use: No CD- Drugs: No Caffeine use: Yes Place of Residence: Home Physical Examination Temp Pulse Resp BP Pulse Ox 98.5 F 64 16 113/60 96 09/21/23 08:00 09/21/23 08:00 09/21/23 08:00 09/21/23 08:00 09/21/23 08:00 Conclusions/Impression: Problem List Diverticular abscess Microcytic Anemia Sjogren's Syndrome Hx Graves Disease Hypertension - CT abdomen pelvis 09/18: "5.2 x 2.6 centimeter low-density mass adjacent to the sigmoid colon minimally enlarged from the prior exam probably an abscess secondary to diverticulitis. 2.5 centimeter lobulated lucent lesion greater trochanter left femur has sclerotic border. It has enlarged since 2021. Is unchanged from September 15, 2023. It has a relatively benign appearance. This may represent a unicameral bone cyst, aneurysmal bone cyst, brown tumor or fibrous dysplasia. It is recommended that the patient have an x-ray in 3 months to reassess stability" - Afebrile. no leukocytosis. - On Zosyn (started 09/15) - CT guided drainage attempt unsuccessful Recommendations - unsuccessful attempt to drain abscess; continue antibiotic therapy for at least 14 days. Continue Zosyn for now. - Recommend adequate drainage of abscess. - Follow up with blood cultures - continue supportive care Case discussed with Bernice Love
--- NOTE | 2023-09-21 17:33 | PN ---
Date of Progress Note: 09/21/2023 Diagnosis: Colitis with possible abscess. Subjective: This is the case of a female, who comes to us with abdominal pain. Has been on antibiot ics for about 6 days. About 3 days ago, CAT scan was repeated, it was even an attempt by radiologist , although I do not see it documented about the drainage, but it was unable to do so. In the CAT sca n, initially abscess shows 5.5 cm, right now it is 6, although there are no major significant changes , still an issue. The patient had colonoscopy was about 6 years ago and Cologuard recently with no c ancer at least found at that moment. She does not remember the doweler. Objective: General: Clinically, she feels better. She is tolerating diet. There is no shortness o f breath. No chest pain. Passing gas, having bowel movement. Vital Signs: She is afebrile. Chest: Clear. Abdomen: Soft and depressible. No guarding or rebound. No peritoneal signs. Mild left lower quadr ant tenderness. A lot better from the first time she came. Extremities: Good capillary refill. Laboratory Data: WBC count is normal as 6.7. Plan: We have few 3 options obviously. I discussed with her the opportunities of surgical drainage of that abscess, but at the same time, we might have to do a bowel resection and give her colostomy a nd obviously she does not like that idea at this moment, although she understand electively she might go for that, so at this moment she is not contemplating that surgical options. Second is to refer t his patient to a place where they can do a drainage, that will be great. That will just basically gi ve her cultures, trying to diminish the chance of enlargement, will also probably increase the chance of antibiotics to work a little bit faster and get us ready for a future colonoscopy to make sure it is diverticulum and nothing else and that will also require colorectal evaluation as an outpatient, that is option #2. Option #3 is just basically continuing the IV antibiotics and then when the infec tion gets better, proceed with a workup of GI evaluation and a colorectal evaluation. There is alway s a chance for transferring to colorectal surgery at this moment, although once again, she is not con templating the surgical option at this moment and I believe interventional radiologist may have to ta ke a second look at this. HM/MODL Voice ID: [id number] Report ID: [id number]
[2023-09-21] MEDS ORDERED: ZOLPIDEM TARTRATE 5 MG TABLET PO PRN (21:02)
[2023-09-21] MEDS: TRAZODONE 50 MG TABLET PO PRN (22:15)
[2023-09-21] MEDS: MORPHINE 2 MG/ML SYR IV PRN (22:17)
[2023-09-22 03:58] LABS: Hematocrit 30.3 % (36.0-45.0); MCH 33.5 pg (27.0-35.0); MCHC 36.4 g/dL (32.0-36.0); MCV 91.8 fL (80-100)
[2023-09-22 03:59] LABS: Absolute Lymphocytes (CBC) 1.5 K/uL (0.7-4.9); Absolute Monocytes 0.6 K/uL (0.1-1.3); Absolute Neutrophil 4.5 K/uL (1.8-8.0); Basophils % 0.1 % (0-1.3); Lymphocytes % 23.4 % (15.3-44.8); MPV 6.3 fL (7.6-11.3); Monocytes % 8.8 % (3.3-12.3); Neutrophils % 67.7 % (41.7-73.7); Nucleated Red Blood Cells % 0.2 % (0-0); Platelets 311 thou/uL (152-406); Red Cell Distribution Width 12.1 % (12.1-15.2)
[2023-09-22 04:08] LABS: Albumin 2.8 g/dL (3.4-5.0); Albumin/Globulin Ratio 0.9 (1.1-1.8); Anion Gap 8.6 mEq/L (5.0-15.0); Bilirubin Total 0.6 mg/dL (0.2-1.0); Globulin 3.2 g/dL (2.3-3.5); Magnesium 1.9 mg/dL (1.6-2.4); Potassium 3.6 mEq/L (3.5-5.1)
--- NOTE | 2023-09-22 08:28 | P.PN ---
Subjective Date of Service: 09/22/23 Chief Complaint: Constipation/abdominal pain Tolerating full liquid diet today, reports passing gas, left lower quadrant tenderness supra pubic tenderness, Prunes ordered for constipation, on IV antibiotics for diverticular abscess, surgery following, afebrile - Physical Exam General: Alert, In no apparent distress, Oriented x3 HEENT: Atraumatic, Normocephalic Neck: Supple, JVD not distended Respiratory: Clear to auscultation bilaterally, Normal air movement Cardiovascular: No edema, Normal pulses, Regular rate/rhythm Capillary refill: <2 Seconds Gastrointestinal: (left lower quadrant tenderness) Musculoskeletal: No clubbing, No swelling Integumentary: No rashes Neurological: Normal speech, Normal tone Lymphatics: No axilla or inguinal lymphadenopathy <Moni Abbasi - Last Filed: 09/22/23 12:41> Date of Service: 09/22/23 <Bonnie Donato - Last Filed: 09/27/23 16:11> Review of Systems Per HPI <Moni Abbasi - Last Filed: 09/22/23 12:41> Physical Examination - Vital Signs Temperature: 97.4 F Blood Pressure: 101/57 Pulse: 54 Respirations: 14 Pulse Ox (%): 95 <Moni Abbasi - Last Filed: 09/22/23 12:41> Assessment And Plan - Plan - Plan Diverticular abscess Diverticulitis improved Left lower quadrant abdominal pain constipation Continue IV antibiotics. [facility] General surgery Dr. Chan is following. An attempt at CT-guided drainage was unsuccessful. May try again on 09/21/23 Dr. Chan recommend antibiotics and monitoring for now. Analgesics as needed Clear liquid diet, advance to soft Serial abdominal examination. Repeated CT 09/18 - no change Infectious disease consult to advise on antibiotics. will add prunes to meal Constipation As needed stool softeners, prolonged Microcytic anemia stable Hemoglobin [id number], 10.9 Trend H&H Transfuse hemoglobin less than Sjogren's syndrome Supportive care Continue pilocarpine. History of Graves' disease status post radioactive iodine treatment Continue Synthroid. Essential hypertension BP is within normal range. Losartan is on hold. DVT SCDs Full code Diet full liquid Disposition Home, alone, independent with ADLs Discharge Plan: Home - Code Status/Comfort Care Code Status: Full Code Critical Care: No Time Spent Managing PTS Care (In Minutes): 35 <Moni Abbasi - Last Filed: 09/22/23 12:41> - Current Problems (Diagnosis) (1) Diverticular disease of intestine with perforation and abscess Current Visit: Yes Status: Acute (2) Sjogrens syndrome Current Visit: Yes Status: Acute (3) H/O abdominal hysterectomy Current Visit: Yes Status: Acute (4) History of Graves' disease Current Visit: Yes Status: Acute <Bonnie Donato - Last Filed: 09/27/23 16:11> Date of Service: 09/22/23 Agree with plan of care as mentioned below. Patient clinical symptoms are stable. Major decision making performed by myself and documented by BILL. <Bonnie Donato - Last Filed: 09/27/23 16:11>
[2023-09-22] MEDS: LOSARTAN/HCTZ 50-12.5 PO SCH (09:58)
[2023-09-23 04:02] LABS: Absolute Lymphocytes (CBC) 1.4 K/uL (0.7-4.9); Absolute Monocytes 0.5 K/uL (0.1-1.3); Absolute Neutrophil 4.4 K/uL (1.8-8.0); Basophils % 0.1 % (0-1.3); Hematocrit 30.6 % (36.0-45.0); Hemoglobin 10.9 g/dL (12.0-15.0); MCH 32.7 pg (27.0-35.0); MCHC 35.7 g/dL (32.0-36.0); MCV 91.6 fL (80-100); MPV 6.4 fL (7.6-11.3); Monocytes % 8.7 % (3.3-12.3); Neutrophils % 69.2 % (41.7-73.7); Nucleated Red Blood Cells % 0.1 % (0-0); Platelets 330 thou/uL (152-406); RBC Red Blood Cell Count 3.34 M/uL (3.86-4.86); Red Cell Distribution Width 12.1 % (12.1-15.2)
[2023-09-23 04:12] LABS: Albumin 2.8 g/dL (3.4-5.0); Albumin/Globulin Ratio 0.9 (1.1-1.8); Anion Gap 6.7 mEq/L (5.0-15.0); Bilirubin Total 0.5 mg/dL (0.2-1.0); Globulin 3.2 g/dL (2.3-3.5); Potassium 3.7 mEq/L (3.5-5.1)
--- NOTE | 2023-09-23 14:18 | P.PN ---
Subjective Date of Service: 09/23/23 Chief Complaint: Constipation/abdominal pain Tolerating full liquid diet today, reports passing gas, left lower quadrant tenderness supra pubic tenderness, Prunes ordered for constipation, on IV antibiotics for diverticular abscess, surgery following, afebrile - Physical Exam General: Alert, In no apparent distress, Oriented x3 HEENT: Atraumatic, Normocephalic Neck: Supple, JVD not distended Respiratory: Clear to auscultation bilaterally, Normal air movement Cardiovascular: No edema, Normal pulses, Regular rate/rhythm Capillary refill: <2 Seconds Gastrointestinal: (left lower quadrant tenderness) Musculoskeletal: No clubbing, No swelling Integumentary: No rashes Neurological: Normal speech, Normal tone Lymphatics: No axilla or inguinal lymphadenopathy <Moni Abbasi - Last Filed: 09/23/23 14:16> Date of Service: 09/23/23 <Bonnie Donato - Last Filed: 09/27/23 16:21> Review of Systems per HPI <Moni Abbasi - Last Filed: 09/23/23 14:16> Physical Examination - Vital Signs Temperature: 97.7 F Blood Pressure: 108/64 Pulse: 66 Respirations: 16 Pulse Ox (%): 94 <Moni Abbasi - Last Filed: 09/23/23 14:16> Assessment And Plan - Plan - Plan Diverticular abscess Diverticulitis improved Left lower quadrant abdominal pain constipation Continue IV antibiotics. [facility] General surgery Dr. Chan is following. An attempt at CT-guided drainage was unsuccessful. May try again on 09/21/23 Dr. Chan recommend antibiotics and monitoring for now. Analgesics as needed Clear liquid diet, advance to soft Serial abdominal examination. Repeated CT 09/18 - no change Infectious disease consult to advise on antibiotics. will add prunes to meal unicameral bone cyst aneurysmal bone cyst, brown tumor or fibrous dysplasia. It is recommended that the patient have an x-ray in 3 months to reassess stability" Constipation As needed stool softeners, prolonged Microcytic anemia stable Hemoglobin [id number], 10.9 Trend H&H Transfuse hemoglobin less than Sjogren's syndrome Supportive care Continue pilocarpine. History of Graves' disease status post radioactive iodine treatment Continue Synthroid. Essential hypertension BP is within normal range. Losartan is on hold. DVT SCDs Full code Diet full liquid Disposition Home, alone, independent with ADLs Discharge Plan: Home - Code Status/Comfort Care Code Status: Full Code Critical Care: No Time Spent Managing PTS Care (In Minutes): 35 <Moni Abbasi - Last Filed: 09/23/23 14:16> - Current Problems (Diagnosis) (1) Diverticular disease of intestine with perforation and abscess Current Visit: Yes Status: Acute (2) Sjogrens syndrome Current Visit: Yes Status: Acute (3) H/O abdominal hysterectomy Current Visit: Yes Status: Acute (4) History of Graves' disease Current Visit: Yes Status: Acute <Bonnie Donato - Last Filed: 09/27/23 16:21> Date of Service: 09/23/23 Discussed plan of care with family. Agree with plan of care as mentioned below. Patient clinical symptoms are stable. Major decision making performed by myself and documented by BILL. Repeat CT scan in 48 to 72 hours. <Bonnie Donato - Last Filed: 09/27/23 16:21>
[2023-09-24 04:04] LABS: Anion Gap 6.8 mEq/L (5.0-15.0); Magnesium 2.1 mg/dL (1.6-2.4); Potassium 3.8 mEq/L (3.5-5.1)
[2023-09-24] MEDS: GABAPENTIN 100 MG CAP PO SCH (04:19)
--- NOTE | 2023-09-24 06:32 | P.PN ---
Subjective Date of Service: 09/25/23 Chief Complaint: Constipation/abdominal pain N.p.o. after midnight, repeat CT scan surgery to reevaluate abscess tolerating full liquid diet today, left lower quadrant tenderness supra pubic tenderness, - Physical Exam General: Alert, In no apparent distress, Oriented x3 HEENT: Atraumatic, Normocephalic Neck: Supple, JVD not distended Respiratory: Clear to auscultation bilaterally, Normal air movement Cardiovascular: No edema, Normal pulses, Regular rate/rhythm Capillary refill: <2 Seconds Gastrointestinal: (left lower quadrant tenderness) Musculoskeletal: No clubbing, No swelling Integumentary: No rashes Neurological: Normal speech, Normal tone Lymphatics: No axilla or inguinal lymphadenopathy <Moni Abbasi - Last Filed: 09/25/23 07:30> Date of Service: 09/24/23 <Bonnie Donato - Last Filed: 09/27/23 16:22> Review of Systems Per HPI <Moni Abbasi - Last Filed: 09/25/23 07:30> Physical Examination - Vital Signs Temperature: 97.4 F Blood Pressure: 110/62 Pulse: 65 Respirations: 16 Pulse Ox (%): 96 <Moni Abbasi - Last Filed: 09/25/23 07:30> Assessment And Plan - Plan - Plan Diverticular abscess Diverticulitis improved Left lower quadrant abdominal pain constipation Continue IV antibiotics. [facility] General surgery Dr. Chan is following. An attempt at CT-guided drainage was unsuccessful. May try again on 09/21/23 Dr. Chan recommend antibiotics and monitoring for now. Analgesics as needed Clear liquid diet, advance to soft Serial abdominal examination. Repeated CT 09/18 - no change Infectious disease consult to advise on antibiotics. will add prunes to meal Infectious disease recommendation continue antibiotic therapy for at least 14 days. Continue Zosyn for now. Recommend adequate drainage of abscess. On Zosyn (started 09/15) - CT guided drainage attempt unsuccessful unicameral bone cyst aneurysmal bone cyst, brown tumor or fibrous dysplasia. It is recommended that the patient have an x-ray in 3 months to reassess stability" Constipation As needed stool softeners, prolonged Microcytic anemia stable Hemoglobin [id number], 10.9 Trend H&H Transfuse hemoglobin less than Sjogren's syndrome Supportive care Continue pilocarpine. History of Graves' disease status post radioactive iodine treatment Continue Synthroid. Essential hypertension BP is within normal range. Losartan is on hold. DVT SCDs Full code Diet full liquid Disposition Home, alone, independent with ADLs Discharge Plan: Home - Code Status/Comfort Care Code Status: Full Code Critical Care: No Time Spent Managing PTS Care (In Minutes): 35 <Moni Abbasi - Last Filed: 09/25/23 07:30> - Current Problems (Diagnosis) (1) Diverticular disease of intestine with perforation and abscess Current Visit: Yes Status: Acute (2) Sjogrens syndrome Current Visit: Yes Status: Acute (3) H/O abdominal hysterectomy Current Visit: Yes Status: Acute (4) History of Graves' disease Current Visit: Yes Status: Acute <Bonnie Donato - Last Filed: 09/27/23 16:22> Date of Service: 09/24/23 Discussed plan of care with family. Agree with plan of care as mentioned below. Patient clinical symptoms are stable. Major decision making performed by myself and documented by BILL. Repeat CT scan in 48 to 72 hours. <Bonnie Donato - Last Filed: 09/27/23 16:22>
[2023-09-25 03:40] LABS: Absolute Lymphocytes (CBC) 1.6 K/uL (0.7-4.9); Absolute Monocytes 0.7 K/uL (0.1-1.3); Absolute Neutrophil 4.5 K/uL (1.8-8.0); Basophils % 0.3 % (0-1.3); Hematocrit 30.2 % (36.0-45.0); Hemoglobin 10.6 g/dL (12.0-15.0); Lymphocytes % 23.6 % (15.3-44.8); MCH 32.5 pg (27.0-35.0); MCV 92.8 fL (80-100); MPV 6.5 fL (7.6-11.3); Neutrophils % 66.1 % (41.7-73.7); Platelets 325 thou/uL (152-406); RBC Red Blood Cell Count 3.25 M/uL (3.86-4.86); Red Cell Distribution Width 12.4 % (12.1-15.2)
[2023-09-25 04:58] LABS: Magnesium 2.2 mg/dL (1.6-2.4)
--- NOTE | 2023-09-25 07:30 | P.PN ---
Subjective Date of Service: 09/26/23 Chief Complaint: Constipation/abdominal pain 09/[address] surg to eval, on IV antibiotics for diverticular abscess, surgery following, afebrile Reports sleeping well overnight, left lower quadrant tenderness supra pubic tenderness, Prunes ordered for constipation, will add metamucil with meals bid picc line in place for IV ABX - Physical Exam General: Alert, In no apparent distress, Oriented x3 HEENT: Atraumatic, Normocephalic Neck: Supple, JVD not distended Respiratory: Clear to auscultation bilaterally, Normal air movement Cardiovascular: No edema, Normal pulses, Regular rate/rhythm Capillary refill: <2 Seconds Gastrointestinal: (left lower quadrant tenderness) Musculoskeletal: No clubbing, No swelling Integumentary: No rashes Neurological: Normal speech, Normal tone Lymphatics: No axilla or inguinal lymphadenopathy <Moni Abbasi - Last Filed: 09/26/23 10:50> Date of Service: 09/26/23 <Bonnie Donato - Last Filed: 09/27/23 16:40> Review of Systems per HPI <Moni Abbasi - Last Filed: 09/26/23 10:50> Physical Examination - Vital Signs Temperature: 97.2 F Blood Pressure: 108/52 Pulse: 63 Respirations: 17 Pulse Ox (%): 95 <Moni Abbasi - Last Filed: 09/26/23 10:50> Assessment And Plan - Plan - Plan Diverticular abscess Diverticulitis improved Left lower quadrant abdominal pain constipation Continue IV antibiotics. [facility] General surgery Dr. Chan is following. An attempt at CT-guided drainage was unsuccessful. May try again on 09/21/23 Dr. Chan recommend antibiotics and monitoring for now. Analgesics as needed Clear liquid diet, advance to soft Serial abdominal examination. Repeated CT 09/18 - no change Infectious disease consult to advise on antibiotics. will add prunes to meal Infectious disease recommendation continue antibiotic therapy for at least 14 days. Continue Zosyn for now. - CT guided drainage attempt unsuccessful repeat CT 09/24 No other significant change IMPRESSION: 5 x 2.6 centimeter mass adjacent to the left aspect of the sigmoid colon presumably diverticular abscess. It contains 2 centimeter collection of air. The fluid has diminished. 09/24 Chest x-ray, PICC line placement for IV antibiotic IMPRESSION: The PICC is in satisfactory position overlying the SVC. Recommend adequate drainage of abscess. On Zosyn (started 09/15) antibiotic therapy for at least 14 days. Through September 29 Homehealth Ninfa Christiansen-LEAD ARCHITECT at [facility]. Patient reports she lives alone, independent in ADLs-no DME or services in place and is employed 30hrs/week at [employer]. Patient reports she obtains most of her daily medications from [facility] at reduced cost. unicameral bone cyst aneurysmal bone cyst, brown tumor or fibrous dysplasia. It is recommended that the patient have an x-ray in 3 months to reassess stability" Constipation Prune juice w meals, metamucil added bided, Microcytic anemia stable Hemoglobin [id number], 10.9 Trend H&H Transfuse hemoglobin less than Sjogren's syndrome Supportive care Continue pilocarpine. History of Graves' disease status post radioactive iodine treatment Continue Synthroid. Essential hypertension BP is within normal range. Losartan is on hold. DVT SCDs Full code Diet full liquid Disposition Home, alone, independent with ADLs Discharge Plan: Home - Code Status/Comfort Care Code Status: Full Code Critical Care: No Time Spent Managing PTS Care (In Minutes): 35 <Moni Abbasi - Last Filed: 09/26/23 10:50> - Current Problems (Diagnosis) (1) Diverticular disease of intestine with perforation and abscess Current Visit: Yes Status: Acute (2) Sjogrens syndrome Current Visit: Yes Status: Acute (3) H/O abdominal hysterectomy Current Visit: Yes Status: Acute (4) History of Graves' disease Current Visit: Yes Status: Acute <Bonnie Donato - Last Filed: 09/27/23 16:40> Date of Service: 09/26/23 Agree with plan of care as mentioned below. Patient continues to improve. CT scan has improved. Spoke with surgery, and they are agreeable with IV antibiotics at discharge. Appreciate surgery and infectious disease consultation. PICC line completed. Patient chart was reviewed and patient was seen and examined. Agree with the assessment and plan. Most of the MDM was done by myself and plan of care was discussed with BILL and consultants as well as the patient. Plan to discharge once IV antibiotics arranged. <Bonnie Donato - Last Filed: 09/27/23 16:40>
--- NOTE | 2023-09-25 10:02 | RAD REPORT ---
EXAM DESCRIPTION: CT - Abdomen Pelvis W Contrast - 09/25/2023 9:24 am CLINICAL HISTORY: Abdominal pain COMPARISON: September 19, 2023 TECHNIQUE: Computed axial tomography of the abdomen and pelvis was obtained. 100 cc Isovue-300 is ad ministered intravenously. Oral contrast was given. All CT scans are performed using dose optimization technique as appropriate and may include automated exposure control or mA/KV adjustment according to patient size. FINDINGS: The liver, spleen, pancreas, adrenals and kidneys appear unremarkable. 5 x 2 x 2.6 centimeter mass adjacent to the left aspect of the sigmoid colon is without significant c hange size. It contains a 2 centimeter collection of air but less fluid than on the prior exam. Stran ding adjacent to the sigmoid colon persists. Diverticulosis. No other significant change IMPRESSION: 5 x 2.6 centimeter mass adjacent to the left aspect of the sigmoid colon presumably dive rticular abscess. It contains 2 centimeter collection of air. The fluid has diminished.
[2023-09-25] MEDS: Mupirocin NASAL 2 APPL/1 GM TUBE NAS SCH (11:59)
--- NOTE | 2023-09-25 15:16 | RAD REPORT ---
EXAM DESCRIPTION: RAD - Chest Single View - 09/25/2023 3:09 pm CLINICAL HISTORY: confirm PICC placement COMPARISON: <Comparisons> FINDINGS: Lines: Left subclavian right PICC with tip overlying the SVC in satisfactory position . Lungs: Ill-defined airspace opacities in the upper lungs, right greater than left. Linear scarring ve rsus subsegmental atelectasis at the left lung base. Pleural: No significant pleural effusions or pneumothorax. Cardiac: The heart size is within normal limits. Mediastinum: Within normal limits. Bones: No acute fractures. ACDF in the lower cervical and possibly upper thoracic spine. Other: None IMPRESSION: The PICC is in satisfactory position overlying the SVC. Ill-defined upper lung opacities could reflect infection, inflammation, or areas of chronic scarring. Consider radiographic or CT follow-up.
[2023-09-26 06:28] LABS: Absolute Lymphocytes (CBC) 1.3 K/uL (0.7-4.9); Absolute Monocytes 0.5 K/uL (0.1-1.3); Absolute Neutrophil 4.1 K/uL (1.8-8.0); Basophils % 0.1 % (0-1.3); Hematocrit 31.4 % (36.0-45.0); Lymphocytes % 21.9 % (15.3-44.8); MCH 32.5 pg (27.0-35.0); MCV 92.8 fL (80-100); MPV 6.4 fL (7.6-11.3); Nucleated Red Blood Cells % 0.1 % (0-0); Platelets 304 thou/uL (152-406); RBC Red Blood Cell Count 3.38 M/uL (3.86-4.86); Red Cell Distribution Width 12.6 % (12.1-15.2)
[2023-09-26 06:44] LABS: Anion Gap 7.1 mEq/L (5.0-15.0); Magnesium 2.2 mg/dL (1.6-2.4); Potassium 4.1 mEq/L (3.5-5.1)
[2023-09-26] MEDS: PSYLLIUM 1 PKT PO SCH (11:36)
--- NOTE | 2023-09-26 17:21 | PN ---
Date of Progress Note: 09/26/2023 Diagnosis: Diverticulitis. Subjective: The patient is doing better. No shortness of breath. No chest pain. No fever. She is in a hospital, complaining of the IV antibiotics recommended by Infectious Disease. No peritonitis present. Objective: Chest: Clear. Abdomen: Soft and depressible. No guarding or rebound. Extremities: Good capillary refill. Plan: Continue antibiotics per Infectious Disease. She understands if she gets to go home, she need s to follow up in our office. We have to plan colonoscopies and even elective surgery in that area. GENESIS/SALLY Voice ID: [id number] Report ID: [id number]
[2023-09-27 06:14] LABS: Absolute Lymphocytes (CBC) 1.3 K/uL (0.7-4.9); Absolute Monocytes 0.6 K/uL (0.1-1.3); Basophils % 0.1 % (0-1.3); Hematocrit 30.8 % (36.0-45.0); Hemoglobin 10.9 g/dL (12.0-15.0); Lymphocytes % 21.7 % (15.3-44.8); MCH 32.6 pg (27.0-35.0); MCHC 35.3 g/dL (32.0-36.0); MCV 92.4 fL (80-100); MPV 5.8 fL (7.6-11.3); Monocytes % 10.8 % (3.3-12.3); Neutrophils % 67.4 % (41.7-73.7); Platelets 288 thou/uL (152-406); RBC Red Blood Cell Count 3.34 M/uL (3.86-4.86); Red Cell Distribution Width 12.3 % (12.1-15.2)
--- NOTE | 2023-09-27 06:23 | P.PN ---
Subjective Date of Service: 09/27/23 Chief Complaint: Constipation/abdominal pain 09/[address] surg to eval, on IV antibiotics for diverticular abscess, surgery following, afebrile Reports sleeping well overnight, left lower quadrant tenderness supra pubic tenderness, Prunes ordered for constipation, will add metamucil with meals bid picc line in place for IV ABX - Physical Exam General: Alert, In no apparent distress, Oriented x3 HEENT: Atraumatic, Normocephalic Neck: Supple, JVD not distended Respiratory: Clear to auscultation bilaterally, Normal air movement Cardiovascular: No edema, Normal pulses, Regular rate/rhythm Capillary refill: <2 Seconds Gastrointestinal: (left lower quadrant tenderness) Musculoskeletal: No clubbing, No swelling Integumentary: No rashes Neurological: Normal speech, Normal tone Lymphatics: No axilla or inguinal lymphadenopathy <Moni Abbasi - Last Filed: 09/27/23 06:24> Date of Service: 09/25/23 <Bonnie Donato - Last Filed: 09/27/23 16:28> Review of Systems per HPI <Moni Abbasi - Last Filed: 09/27/23 06:24> Physical Examination - Vital Signs Temperature: 97.7 F Blood Pressure: 93/54 Pulse: 69 Respirations: 17 Pulse Ox (%): 97 <Moni Abbasi - Last Filed: 09/27/23 06:24> Assessment And Plan - Plan - Plan Diverticular abscess Diverticulitis improved Left lower quadrant abdominal pain constipation Continue IV antibiotics. [facility] General surgery Dr. Chan is following. An attempt at CT-guided drainage was unsuccessful. May try again on 09/21/23 Dr. Chan recommend antibiotics and monitoring for now. Analgesics as needed Clear liquid diet, advance to soft Serial abdominal examination. Repeated CT 09/18 - no change Infectious disease consult to advise on antibiotics. will add prunes to meal Infectious disease recommendation continue antibiotic therapy for at least 14 days. Continue Zosyn for now. - CT guided drainage attempt unsuccessful repeat CT 09/24 No other significant change IMPRESSION: 5 x 2.6 centimeter mass adjacent to the left aspect of the sigmoid colon presumably diverticular abscess. It contains 2 centimeter collection of air. The fluid has diminished. 09/24 Chest x-ray, PICC line placement for IV antibiotic IMPRESSION: The PICC is in satisfactory position overlying the SVC. Recommend adequate drainage of abscess. On Zosyn (started 09/15) antibiotic therapy for at least 14 days. Through September 29 Homehealth Ninfa Christiansen-[employer] at [facility]. Patient reports she lives alone, independent in ADLs-no DME or services in place and is employed 30hrs/week at [employer]. Patient reports she obtains most of her daily medications from [facility] at reduced cost. unicameral bone cyst aneurysmal bone cyst, brown tumor or fibrous dysplasia. It is recommended that the patient have an x-ray in 3 months to reassess stability" Constipation Prune juice w meals, metamucil added bided, Microcytic anemia stable Hemoglobin [id number], 10.9 Trend H&H Transfuse hemoglobin less than Sjogren's syndrome Supportive care Continue pilocarpine. History of Graves' disease status post radioactive iodine treatment Continue Synthroid. Essential hypertension BP is within normal range. Losartan is on hold. DVT SCDs Full code Diet full liquid Disposition Home, alone, independent with ADLs Discharge Plan: Home Critical Care: No Time Spent Managing PTS Care (In Minutes): 35 <Moni Abbasi - Last Filed: 09/27/23 06:24> - Current Problems (Diagnosis) (1) Diverticular disease of intestine with perforation and abscess Current Visit: Yes Status: Acute (2) Sjogrens syndrome Current Visit: Yes Status: Acute (3) H/O abdominal hysterectomy Current Visit: Yes Status: Acute (4) History of Graves' disease Current Visit: Yes Status: Acute <Bonnie Donato - Last Filed: 09/27/23 16:28> Date of Service: 09/25/23 Patient continues to improve. CT scan has improved. Spoke with surgery, and they want patient to continue with IV antibiotics at discharge. Appreciate pulmonary consultation. PICC line pending. <Bonnie Donato - Last Filed: 09/27/23 16:28>
--- NOTE | 2023-09-27 06:24 | P.PN ---
Subjective Date of Service: 09/27/23 Chief Complaint: Constipation/abdominal pain 09/[address] surg to eval, on IV antibiotics for diverticular abscess, surgery following, afebrile Reports sleeping well overnight, left lower quadrant tenderness supra pubic tenderness, Prunes, Metamucil ordered for constipation, picc line in place for IV ABX - Physical Exam General: Alert, In no apparent distress, Oriented x3 HEENT: Atraumatic, Normocephalic Neck: Supple, JVD not distended Respiratory: Clear to auscultation bilaterally, Normal air movement Cardiovascular: No edema, Normal pulses, Regular rate/rhythm Capillary refill: <2 Seconds Gastrointestinal: (left lower quadrant tenderness) Musculoskeletal: No clubbing, No swelling Integumentary: No rashes Neurological: Normal speech, Normal tone Lymphatics: No axilla or inguinal lymphadenopathy <Moni Abbasi - Last Filed: 09/27/23 09:03> Date of Service: 09/27/23 <Bonnie Donato - Last Filed: 09/27/23 16:37> Review of Systems per HPI <Moni Abbasi - Last Filed: 09/27/23 09:03> Physical Examination - Vital Signs Temperature: 97.7 F Blood Pressure: 93/54 Pulse: 69 Respirations: 17 Pulse Ox (%): 97 <Moni Abbasi - Last Filed: 09/27/23 09:03> Assessment And Plan - Plan - Plan Diverticular abscess Diverticulitis improved Left lower quadrant abdominal pain constipation Continue IV antibiotics. [facility] General surgery Dr. Chan is following. An attempt at CT-guided drainage was unsuccessful. May try again on 09/21/23 Dr. Chan recommend antibiotics and monitoring for now. Analgesics as needed Clear liquid diet, advance to soft Serial abdominal examination. Repeated CT 09/18 - no change Infectious disease consult to advise on antibiotics. will add prunes to meal Infectious disease recommendation continue antibiotic therapy for at least 14 days. Continue Zosyn for now. - CT guided drainage attempt unsuccessful repeat CT 09/24 No other significant change IMPRESSION: 5 x 2.6 centimeter mass adjacent to the left aspect of the sigmoid colon presumably diverticular abscess. It contains 2 centimeter collection of air. The fluid has diminished. 09/24 Chest x-ray, PICC line placement for IV antibiotic IMPRESSION: The PICC is in satisfactory position overlying the SVC. Recommend adequate drainage of abscess. On Zosyn (started 09/15) antibiotic therapy for at least 14 days. Through September 29 Homehealth Ninfa Christiansen-GASATERIA ATTENDANT at [facility]. Patient reports she lives alone, independent in ADLs-no DME or services in place and is employed 30hrs/week at [employer]. Patient reports she obtains most of her daily medications from [facility] at reduced cost. unicameral bone cyst aneurysmal bone cyst, brown tumor or fibrous dysplasia. It is recommended that the patient have an x-ray in 3 months to reassess stability" Constipation Prune juice w meals, metamucil added bided, Microcytic anemia stable Hemoglobin [id number], 10.9 Trend H&H Transfuse hemoglobin less than Sjogren's syndrome Supportive care Continue pilocarpine. History of Graves' disease status post radioactive iodine treatment Continue Synthroid. Essential hypertension BP is within normal range. Losartan is on hold. DVT SCDs Full code Diet full liquid Disposition Home, alone, independent with ADLs Discharge Plan: Home - Code Status/Comfort Care Code Status: Full Code Critical Care: No Time Spent Managing PTS Care (In Minutes): 35 <Moni Abbasi - Last Filed: 09/27/23 09:03> - Current Problems (Diagnosis) (1) Diverticular disease of intestine with perforation and abscess Current Visit: Yes Status: Acute (2) Sjogrens syndrome Current Visit: Yes Status: Acute (3) H/O abdominal hysterectomy Current Visit: Yes Status: Acute (4) History of Graves' disease Current Visit: Yes Status: Acute <Bonnie Donato - Last Filed: 09/27/23 16:37> Date of Service: 09/27/23 Patient continues to improve. CT scan has improved. Spoke with surgery, and they want patient to continue with IV antibiotics at discharge. Appreciate pulmonary consultation. PICC line pending. Patient chart was reviewed and patient was seen and examined. Agree with the assessment and plan. Most of the MDM was done by myself and plan of care was discussed with BILL as well as the patient. Plan to discharge once IV antibiotics arranged. <Bonnie Donato - Last Filed: 09/27/23 16:37>
[2023-09-27 06:28] LABS: Magnesium 1.9 mg/dL (1.6-2.4)
[2023-09-27] MEDS ORDERED: MORPHINE 4 MG/ML SYR IV PRN (07:15)
[2023-09-27] MEDS: MINERAL OIL 30 ML UCUP PO ONE (11:21)
[2023-09-27] MEDS: CALCIUM CARBONATE CHEW 500MG TAB PO PRN (22:44)
[2023-09-28 08:16] LABS: Absolute Lymphocytes (CBC) 1.2 K/uL (0.7-4.9); Absolute Monocytes 0.5 K/uL (0.1-1.3); Absolute Neutrophil 3.2 K/uL (1.8-8.0); Basophils % 0.1 % (0-1.3); Hematocrit 30.4 % (36.0-45.0); Hemoglobin 10.7 g/dL (12.0-15.0); Lymphocytes % 24.1 % (15.3-44.8); MCH 32.6 pg (27.0-35.0); MCHC 35.3 g/dL (32.0-36.0); MCV 92.2 fL (80-100); MPV 6.5 fL (7.6-11.3); Neutrophils % 64.8 % (41.7-73.7); Nucleated Red Blood Cells % 0.2 % (0-0); Platelets 289 thou/uL (152-406); Red Cell Distribution Width 12.2 % (12.1-15.2)
[2023-09-28 08:28] LABS: Anion Gap 6.8 mEq/L (5.0-15.0); Potassium 3.8 mEq/L (3.5-5.1)
--- NOTE | 2023-09-28 10:34 | P.PN ---
Subjective Date of Service: 09/29/23 Chief Complaint: Constipation/abdominal pain Subjective: Improving (no BM, pt taking mineral oil) <Ivonne Polo - Last Filed: 09/29/23 09:01> Date of Service: 09/29/23 <Homar Chinplacido Bell - Last Filed: 09/29/23 22:51> Review of Systems 10-point ROS is otherwise unremarkable Gastrointestinal: Constipation <Ivonne Polo - Last Filed: 09/29/23 09:01> Physical Examination - Vital Signs Temperature: 97.6 F Blood Pressure: 131/72 Pulse: 59 Respirations: 16 Pulse Ox (%): 98 - Physical Exam General: Alert, In no apparent distress, Oriented x3 HEENT: Atraumatic, Normocephalic, PERRLA Neck: Supple Respiratory: Normal air movement Cardiovascular: No edema, Normal pulses, Regular rate/rhythm Capillary refill: <2 Seconds Gastrointestinal: Normal bowel sounds, Soft and benign Musculoskeletal: No clubbing Integumentary: No rashes, No breakdown Neurological: Normal gait, Normal speech, Normal tone Lymphatics: No axilla or inguinal lymphadenopathy External genitalia: Deferred Rectal: Deferred <Ivonne Polo - Last Filed: 09/29/23 09:01> Assessment And Plan - Plan Diverticular abscess Continue IV antibiotics. General surgery Dr. Chan is following. An attempt at CT-guided drainage was unsuccessful on admission. Pt rec'ing IV abx - recommended 14days IV abx per ID, abscess area decreasing in size Analgesics as needed Tolerating diet Serial abdominal examination. complains of constipation. Started Mineral oil today. Will give prune, orange juice, pat of butter warmed today. Infectious disease consult to advise on antibiotics. Sjogren's syndrome Supportive care Continue pilocarpine. History of Graves' disease status post radioactive iodine treatment Continue Synthroid. Essential hypertension BP is within normal range. Losartan as tolerated DVT prophylaxis: SCD <Ivonne Polo - Last Filed: 09/29/23 09:01> - Plan Pt seen and examined. I agree with the note by the UI SOFTWARE DEVELOPER. Pt will need 1 more week of zosyn. The pillowcase folder will set up abx infusion at home. <Dom Chin - Last Filed: 09/29/23 22:51>
[2023-09-28] MEDS: SIMETHICONE 80 MG CHEWABLE TAB PO ONE (15:28)
--- NOTE | 2023-09-29 09:04 | P.DS ---
Admission Date: 09/15/23 Discharge Date: 09/29/23 Reason for Admission: Constipation/abdominal pain Consultations: Dr. Chan Procedures: Interventional radiology - attempt to drain diverticular abscess Brief History of Present Illness: Patient is a 58-year-old female was evaluated with abdominal pain and constipation. Patient has a history of Sjogren syndrome and she has had a prior hysterectomy. She says she has been dealing with constipation since . She has some similar pain around that time but she did not really think much of it as it improved on its own. Over the last week she was having a lot more tenderness. She had taken stool softeners on multiple occasions last weekend, and afterwards she started having a lot of cramping. This past week she was placed on Linzess, and even after taking Linzess her symptoms appear to worsen. As patient was not feeling any better she came into the emergency room for further evaluation. In the emergency room patient was evaluated and a CT scan of the abdomen was performed. Patient had a diverticular abscess. At this time, patient will be admitted to the hospital and get started on IV antibiotics and IV fluids. Will keep patient NPO. Will touch base with general surgery and will keep patient n.p.o. after midnight. We will also contact radiology for possible CT-guided drainage of the abdominal abscess if it is amenable to drainage. Patient will be admitted for inpatient hospitalization for the perforated colon abscess. Hospital Course: Ms. Goetz did well over the course of her admission. Unfortunately her di verticular abscess was not successfully drained per IR. She received 14 days of IV Zosyn per infectious disease recommendations. Her blood cultures have been without growth. Her vital signs have been stable. She has not had fever. Her main discomfort yesterday was related to constipation. She has been given multiple modalities to relieve constipation but states they just give her increased gas pains. Yesterday she received mineral oil and warmed prune juice with a pad of better and had good results. The plan is to discharge Ms. Cespedes after her 14th completed day of Zosyn around 17:00 today. ID would like patient to continue antibiotics for 2 to 3 weeks. Will discuss outpatient antibiotic options in MDR. She will need continued follow-up with Dr. Chan and has voiced understanding of her treatment plan. An incidental finding on CT abdomen on admission, of a lucent lesion greater trochanter left femur with sclerotic border area . "2.5 centimeter lobulated lucent lesion greater trochanter left femur has sclerotic border. It has enlarged since 2021. Is unchanged from September 15, 2023. It has a relatively benign appearance. This may represent a unicameral bone cyst, aneurysmal bone cyst, brown tumor or fibrous dysplasia. It is recommended that the patient have an x-ray in 3 months to reassess stability" <Ivonne Polo - Last Filed: 09/29/23 09:58> Admission Date: 09/15/23 Discharge Date: 09/29/23 Hospital Course: Pt seen and examined. I agree withe the note by the [facility]. Pt will continue iv zosyn for 1 more week. Ok to discharge. Follow up with PCP and gen surgeon in clinic. <Dom Chin - Last Filed: 09/29/23 13:14> Disposition: ROUTINE DISCHARGE Discharge Condition: GOOD Vital Signs/Physical Exam: Temp Pulse Resp BP Pulse Ox 97.6 F 59 16 131/72 98 09/29/23 09:02 09/29/23 09:02 09/29/23 09:02 09/29/23 09:02 09/29/23 09:02 General: Alert, In no apparent distress, Oriented x3 HEENT: Atraumatic, Normocephalic Neck: 2+ carotid pulse no bruit Respiratory: Clear to auscultation bilaterally, Normal air movement Cardiovascular: Normal pulses, Regular rate/rhythm Capillary refill: <2 Seconds Gastrointestinal: Normal bowel sounds, Soft and benign Musculoskeletal: No clubbing, No swelling Integumentary: No rashes Neurological: Normal gait, Normal speech Lymphatics: No axilla or inguinal lymphadenopathy External genitalia: Deferred Rectal: Deferred Laboratory Data at Discharge: WBC 5.00 thou/uL (4.3-10.9) 09/28/23 06:25 Hgb 10.7 g/dL (12.0-15.0) L 09/28/23 06:25 Hct 30.4 % (36.0-45.0) L 09/28/23 06:25 Plt Count 289 thou/uL (152-406) 09/28/23 06:25 PT 12.2 SECONDS (9.5-12.5) 09/16/23 03:03 INR 1.11 09/16/23 03:03 APTT 30.3 SECONDS (24.3-36.9) 09/16/23 03:03 Sodium 140 mEq/L (136-145) 09/28/23 06:25 Potassium 3.8 mEq/L (3.5-5.1) 09/28/23 06:25 BUN 11 mg/dL (7-18) 09/28/23 06:25 Creatinine 0.59 mg/dL (0.55-1.02) 09/28/23 06:25 Glucose 90 mg/dL (74-106) 09/28/23 06:25 Magnesium 2.0 mg/dL (1.6-2.4) 09/28/23 06:25 Total Bilirubin 0.5 mg/dL (0.2-1.0) 09/23/23 03:18 AST 6 U/L (15-37) L 09/23/23 03:18 ALT 12 U/L (13-56) L 09/23/23 03:18 Alkaline Phosphatase 63 U/L (45-117) 09/23/23 03:18 Lipase 13 U/L (13-75) 09/15/23 16:10 <Polo,Ivonne Wilian - Last Filed: 09/29/23 09:58> Vital Signs/Physical Exam: Temp Pulse Resp BP Pulse Ox 97.6 F 59 16 131/72 98 09/29/23 09:02 09/29/23 09:02 09/29/23 09:02 09/29/23 09:02 09/29/23 09:02 Laboratory Data at Discharge: WBC 5.00 thou/uL (4.3-10.9) 09/28/23 06:25 Hgb 10.7 g/dL (12.0-15.0) L 09/28/23 06:25 Hct 30.4 % (36.0-45.0) L 09/28/23 06:25 Plt Count 289 thou/uL (152-406) 09/28/23 06:25 PT 12.2 SECONDS (9.5-12.5) 09/16/23 03:03 INR 1.11 09/16/23 03:03 APTT 30.3 SECONDS (24.3-36.9) 09/16/23 03:03 Sodium 140 mEq/L (136-145) 09/28/23 06:25 Potassium 3.8 mEq/L (3.5-5.1) 09/28/23 06:25 BUN 11 mg/dL (7-18) 09/28/23 06:25 Creatinine 0.59 mg/dL (0.55-1.02) 09/28/23 06:25 Glucose 90 mg/dL (74-106) 09/28/23 06:25 Magnesium 2.0 mg/dL (1.6-2.4) 09/28/23 06:25 Total Bilirubin 0.5 mg/dL (0.2-1.0) 09/23/23 03:18 AST 6 U/L (15-37) L 09/23/23 03:18 ALT 12 U/L (13-56) L 09/23/23 03:18 Alkaline Phosphatase 63 U/L (45-117) 09/23/23 03:18 Lipase 13 U/L (13-75) 09/15/23 16:10 <Dom Chin - Last Filed: 09/29/23 13:14> Diet: [place] (and advance as tolerated) Activity: Ad yahaira <Ivonne Polo - Last Filed: 09/29/23 09:58> <Dom Chin - Last Filed: 09/29/23 13:14> Home Medications: Cyclosporine [Restasis] 1 each OP DAILY 09/15/23 Levothyroxine Sodium [Synthroid] 200 mcg PO DAILY 09/15/23 Losartan/Hydrochlorothiazide [Losartan-Hctz 50-12.5 mg Tab] 1 each PO DAILY 09/15/23 Montelukast [Singulair] 10 mg PO BEDTIME 09/15/23 Pilocarpine HCl 5 mg PO DAILY 09/15/23 Pilocarpine HCl 5 mg PO DAILY 09/18/23 Physician Discharge Instructions: Continue ad yahaira activity. Take home meds as prescribed. Follow up with PCP and Dr. Chan within 1 week. Followup: Ninfa Christiansen NP [Primary Care Provider] - Justin Chan MD [ACTIVE - CAN ADMIT] -
--- NOTE | 2023-09-29 09:05 | P.PN ---
Date of Service: 09/29/23 Infectious Disease Progress Note Chief Complaint: Constipation/abdominal pain Subjective: NAD. no acute events overnight. + constipation Physical Examination Temp Pulse Resp BP Pulse Ox 97.6 F 59 16 131/72 98 09/29/23 09:02 09/29/23 09:02 09/29/23 09:02 09/29/23 09:02 09/29/23 09:02 General: in no apparent distress. oriented x3. HEENT: normocephalic, atraumatic. sclera nonicteric. Resp: unlabored respirations on room air. clear to auscultation CV: regular rate and rhythm. No edema. Abdomen: normoactive bowel sounds. soft. non-distended. LLQ tenderness. Laboratory data - Reviewed Microbiology Data - Reviewed Imaging Data - Reviewed Assessment and Plan Problem List Diverticular abscess Microcytic Anemia Sjogren's Syndrome Hx Graves Disease Hypertension Diverticular Abscess - CT abdomen pelvis 09/18: "5.2 x 2.6 centimeter low-density mass adjacent to the sigmoid colon minimally enlarged from the prior exam probably an abscess secondary to diverticulitis. 2.5 centimeter lobulated lucent lesion greater trochanter left femur has sclerotic border. It has enlarged since 2021. Is unchanged from September 15, 2023. It has a relatively benign appearance. This may represent a unicameral bone cyst, aneurysmal bone cyst, brown tumor or fibrous dysplasia. It is recommended that the patient have an x-ray in 3 months to reassess stability" - Afebrile. no leukocytosis. - On Zosyn (started 09/15) - repeat CT abdomen pelvis 09/24: " 5 x 2.6 centimeter mass adjacent to the left aspect of the sigmoid colon presumably diverticular abscess. It contains 2 centimeter collection of air. The fluid has diminished" Recommendations - Given size of abscess >3cm, recommend continue IV antibiotic therapy for at least 2-3 weeks. - on Zosyn. PICC line in place. - general surgery following. patient to follow up with surgery as outpatient. - continue supportive care Case discussed with María Love.
[2023-09-30 07:07] LABS: Absolute Lymphocytes (CBC) 1.5 K/uL (0.7-4.9); Absolute Monocytes 0.5 K/uL (0.1-1.3); Absolute Neutrophil 2.8 K/uL (1.8-8.0); Basophils % 0.1 % (0-1.3); Hematocrit 31.2 % (36.0-45.0); Hemoglobin 10.9 g/dL (12.0-15.0); Lymphocytes % 30.8 % (15.3-44.8); MCH 32.2 pg (27.0-35.0); MCHC 34.8 g/dL (32.0-36.0); MCV 92.6 fL (80-100); MPV 6.8 fL (7.6-11.3); Monocytes % 10.1 % (3.3-12.3); Platelets 252 thou/uL (152-406); RBC Red Blood Cell Count 3.37 M/uL (3.86-4.86); Red Cell Distribution Width 12.1 % (12.1-15.2)
[2023-09-30 07:19] LABS: Anion Gap 5.9 mEq/L (5.0-15.0); Potassium 3.9 mEq/L (3.5-5.1)
[2023-09-30 11:26] VITALS: O2SAT 97
[2023-09-30 14:38] VITALS: BP 117/64; TEMP 98.4
== END 2023-09-30 15:31 | disposition home or self-care (01) | DRG 392 ==
LOC: ER 14:41 → ERHOLD 19:05 → 2ND 20:21
PROVIDERS: ADMIT Hospitalist; ATTEND Hospitalist
PROC: 02HV33Z Insertion of Infusion Device into Superior Vena Cava, Percutaneous Approach (ICD-10-PCS; principal; 2023-09-25)
DX: K57.20 Diverticulitis of large intestine with perforation and abscess without bleeding (principal); K59.00 Constipation, unspecified; M35.00 Sjogren syndrome, unspecified; I10 Essential (primary) hypertension; D50.9 Iron deficiency anemia, unspecified; M85.50 Aneurysmal bone cyst, unspecified site; M89.8X8 Other specified disorders of bone, other site; F17.210 Nicotine dependence, cigarettes, uncomplicated; Z88.2 Allergy status to sulfonamides; Z88.1 Allergy status to other antibiotic agents; Z60.2 Problems related to living alone; Z79.890 Hormone replacement therapy; Z79.899 Other long term (current) drug therapy; Z90.710 Acquired absence of both cervix and uterus
CPT/HCPCS: 36415; 71045; 74177; 80048; 80053; 81003; 83690; 83735; 85025; 85610; 85730; 87040; 96374; 96375; 99285; J2270; J2405; J2543; J7030; Q9967